=== PATIENT | male | born 2000 | race Hispanic/Latino ===

== ENCOUNTER 2021-09-12 10:23 | Emergency (ER) | payer OTHER, SELFPAY ==
[2021-09-12] VITALS (18 sets, daily range): BP systolic 126–156; BP diastolic 56–70; PULSE 54–85; RESP 12–24; TEMP 37.1–38.7; O2SAT 97–100; BMI 19.8
--- NOTE | 2021-09-12 10:43 | DI.RAD.S_ITS ---
PROCEDURE: XR CHEST 1V INDICATIONS: chest pain TECHNIQUE: One view of the chest was acquired. COMPARISON: None. FINDINGS: Surgical changes and devices: None. Lungs and pleura: Lungs are clear. No pleural effusions or pneumothorax. Mediastinum: Mediastinal contours appear normal. Heart size is normal. Bones and chest wall: No suspicious bony lesions. Overlying soft tissues appear unremarkable. IMPRESSION: No acute pulmonary process. Dictated by: Edelmira Morocho M.D. on 09/12/2021 at 11:14 Approved by: Edelmira Morocho M.D. on 09/12/2021 at 11:15
[2021-09-12 10:48] LABS: Add Manual Diff / Slide Review NO; Basophils Absolute Auto 100 /uL (0-100); Basophils Percent Auto 0.3 % (0-2); Eosinophils Absolute Auto 0 /uL (0-450); Eosinophils Percent Auto 0.2 % (2-4); Hemoglobin 14.2 g/dL (13.5-17.5); Lymphocytes Absolute Auto 1100 /uL (1100-4500); Lymphocytes Percent Auto 6.5 % (25-40); Mean Corpuscular HGB Conc 34.6 % (30-36); Mean Corpuscular Hemoglobin 29.7 PG (26-34); Mean Corpuscular Volume 85.8 fL (80-100); Monocytes Absolute Auto 2000 /uL (0-900); Monocytes Percent Auto 11.8 % (3-14); Neutrophils Absolute Auto 14100 /uL (1500-7000); Neutrophils Percent Auto 81.2 % (50-75); Platelet Count 279 X10^3/uL (150-400); Red Blood Cell Count 4.78 X10^6/uL (4.5-5.9); Red Cell Distribution Width 13.7 % (11.6-14.8); White Blood Cell Count 17.3 X10^3/uL (4.5-11.0)
[2021-09-12 10:56] LABS: Alanine Aminotransferase 113 IU/L (<50); Albumin 5.2 g/dL (3.5-5.0); Albumin Globulin Ratio 1.6 (1.0-2.8); Alkaline Phosphatase 189 U/L (38-126); Aspartate Aminotransferase 190 IU/L (17-59); BUN Creatinine Ratio 12.5 (6-22); Bilirubin Total 3.5 mg/dL (0.2-1.3); Blood Urea Nitrogen 13 mg/dL (9-20); Calcium 8.8 mg/dL (8.4-10.2); Carbon Dioxide 22 mmol/L (22-32); Chloride 99 mmol/L (98-107); Creatine Kinase 81 U/L (55-170); Estimated Glomerular Filt Rate > 60 mL/min (>60); Globulin 3.3 g/dL (1.7-4.1); Glucose 122 mg/dL (70-100); HEMOLYSIS 28 (0-50); Lipase 51 U/L (23-300); Magnesium 2.1 mg/dL (1.6-2.3); Potassium 3.8 mmol/L (3.4-5.1); Sodium 134 mmol/L (137-145); Total Protein 8.5 g/dL (6.3-8.2)
[2021-09-12 11:07] LABS: COVID19 -Nasal RAPID Negative (Negative)
--- NOTE | 2021-09-12 11:07 | ED_ITS ---
HPI - Chest Pain General Chief Complaint: Chest Pain Stated Complaint: Chest pain, SOB, fever Time Seen by Provider: 09/12/21 11:02 Source: patient Mode of arrival: Ambulatory Limitations: no limitations History of Present Illness HPI narrative: Patient is a 21-year-old healthy male who lives in the [facility] presents with chest shortness of breath and fever. He said that last night his left side of his chest started hurting. It is pretty constant. He denies any cough or shortness of breath. He has no abdominal pain nausea or vomiting. He has some mild fever of 100. He takes no medications. He denies any headache neck pain, fevers chills rigors night sweats Related Data Previous Rx's Medication Instructions Recorded amoxicillin 875 mg-potassium 1 tab PO BID #14 tabs 09/12/21 clavulanate 125 mg tablet Allergies Allergy/AdvReac Type Severity Reaction Status Date / Time No Known Drug Allergies Allergy Verified 09/12/21 10:45 Review of Systems Review of Systems Narrative: GENERAL: Denies chills, fatigue, malaise, fever, sweats, travel HEENT: Denies sinus pain, ear pain, sore throat, difficulty swallowing, neck pain RESPIRATORY: Denies dyspnea, cough, wheezing, hemoptysis, sputum. CARDIOVASCULAR: See HPI GASTROINTESTINAL: Denies nausea, vomiting, abdominal pain, diarrhea, constipation, melena. : Denies dysuria, frequency, incontinence, hematuria, urinary retention, flank pain. MUSCULOSKELETAL: Denies weakness, joint pain, or bony pain SKIN: No rash, no erythema, no pruritus NEUROLOGIC: Denies weakness, dizziness, headache, numbness, change in speech, confusion PSYCHIATRIC: No concerning psychosocial issues. 12 point review of systems is negative except for those stated above and HPI Patient History Social History Smoking Status: Never smoker Smoking Status: Never smoker alcohol intake frequency: 0-2 drinks per day Substance Use Type: does not use Exam Initial Vital Signs Initial Vital Signs: Vital Signs Temperature 100 F H 09/12/21 10:25 Pulse Rate 70 09/12/21 10:25 Respiratory Rate 16 09/12/21 10:25 Blood Pressure 135/70 09/12/21 10:25 Pulse Oximetry 100 09/12/21 10:25 Oxygen Delivery Method 09/12/21 10:25 GENERAL: Thin well-appearing 21-year-old male HEENT: Head atraumatic,EOMI, pupils reactive, face symmetric, moist mucous membranes, no meningeal signs CARDIOVASCULAR: Regular rate and rhythm without murmurs, rubs or gallops. RESPIRATORY: Breath sounds equal bilaterally, no wheezes rales or rhonchi. ABDOMEN: Soft, nontender. Normoactive bowel sounds all 4 quadrants. No guarding or rebound. Negative New sign no right upper quadrant pain : No CVA tenderness EXTREMITIES: Normal range of motion, no clubbing or edema. Neurovascularly i ntact NEUROLOGICAL: Alert and oriented x4.Normal gait and speech. SKIN: Warm, dry, no laceration, no petechiae, no rashes or lesions. Course Orders Ordered: ED Orders 09/12/21 10:35 Complete Blood Count AUTO DIFF Stat Comprehensive Metabolic Panel Stat Lactate (Lactic Acid) Stat Lipase Stat Magnesium Stat Troponin & CK Cardiac Panel Stat 09/12/21 10:38 COVID19 -Nasal RAPID/Pre-Proc Stat 09/12/21 10:43 XR chest 1V Stat EKG-12 Lead Stat 09/12/21 11:28 US abdomen limited Stat 09/12/21 11:35 Procalcitonin Stat 09/12/21 13:06 Blood Culture Stat 09/12/21 13:22 CT abdomen pelvis w con Stat 09/12/21 13:40 Ictotest Urine Stat Urine Culture Stat Urine Drug Screen, Rapid Stat Urine Microscopic Stat 09/12/21 15:31 Covid-19 + FLU A/B by PCR Stat Discontinued Medications Sodium Chloride (Normal Saline 0.9%) 1,000 mls @ 1,000 mls/hr IV BOLUS ONE Stop: 09/12/21 13:17 Last Infusion: 09/12/21 14:26 Dose: 0 mls/hr Documented By: Admin: 09/12/21 12:59 Dose: 1,000 mls/hr Documented By: BS Piperacillin Sod/Tazobactam (Sod 4.5 gm/ Sodium Chloride) 100 mls @ 200 mls/hr IV NOW ONE Stop: 09/12/21 12:19 Last Infusion: 09/12/21 13:38 Dose: 0 mls/hr Documented By: Admin: 09/12/21 13:00 Dose: 200 mls/hr Documented By: RIANNA Sodium Chloride (Normal Saline 0.9%) 1,000 mls @ 1,000 mls/hr IV BOLUS ONE Stop: 09/12/21 16:24 Last Infusion: 09/12/21 16:37 Dose: 0 mls/hr Documented By: Admin: 09/12/21 15:36 Dose: 1,000 mls/hr Documented By: RIANNA Ketorolac Tromethamine (Ketorolac 30 Mg/Ml Vial) 15 mg IV NOW ONE Stop: 09/12/21 12:52 Last Admin: 09/12/21 13:00 Dose: 15 mg Documented By: RIANNA Vital Signs Vital signs: Vital Signs - 8 hr 09/12/21 11:00 09/12/21 11:00 09/12/21 11:30 Temperature Pulse Rate 68 85 Respiratory Rate 12 13 Blood Pressure 137/70 Pulse Oximetry 100 09/12/21 12:00 09/12/21 12:08 09/12/21 12:08 Temperature Pulse Rate 80 82 Respiratory Rate 20 21 Blood Pressure 130/62 Pulse Oximetry 97 98 09/12/21 12:30 09/12/21 12:30 09/12/21 13:00 Temperature 101.7 F H 101.7 F H Pulse Rate 78 Respiratory Rate 24 Blood Pressure 141/68 H Pulse Oximetry 98 09/12/21 13:00 09/12/21 13:00 09/12/21 13:30 Temperature Pulse Rate 84 Respiratory Rate 21 Blood Pressure 129/69 129/62 Pulse Oximetry 100 09/12/21 13:30 09/12/21 14:11 09/12/21 14:12 Temperature Pulse Rate 77 82 Respiratory Rate 15 Blood Pressure 130/59 L Pulse Oximetry 97 97 09/12/21 14:12 09/12/21 14:30 09/12/21 14:30 Temperature 98.7 F Pulse Rate 75 64 Respiratory Rate 18 19 Blood Pressure 132/61 Pulse Oximetry 97 97 09/12/21 15:00 09/12/21 15:00 09/12/21 15:30 Temperature Pulse Rate 69 Respiratory Rate 18 Blood Pressure 131/60 126/56 L Pulse Oximetry 97 09/12/21 15:30 09/12/21 16:00 09/12/21 16:01 Temperature Pulse Rate 67 59 L 61 Respiratory Rate 22 18 18 Blood Pressure Pulse Oximetry 98 98 98 09/12/21 16:01 09/12/21 16:30 09/12/21 16:30 Temperature Pulse Rate 54 L Respiratory Rate 17 Blood Pressure 156/67 H 131/60 Pulse Oximetry 98 MDM - Chest Pain Lab Data Result diagrams: 09/12/21 10:35 09/12/21 10:35 Labs: Lab Results 09/12/21 09/12/21 09/12/21 Range/Units 10:35 10:35 10:35 WBC 17.3 H (4.5-11.0) X10^3/uL RBC 4.78 (4.5-5.9) X10^6/uL Hgb 14.2 (13.5-17.5) g/dL Hct 41.0 (41-53) % MCV 85.8 (80-100) fL MCH 29.7 (26-34) PG MCHC 34.6 (30-36) % RDW 13.7 (11.6-14.8) % Plt Count 279 (150-400) X10^3/uL Neut % (Auto) 81.2 H (50-75) % Lymph % (Auto) 6.5 L (25-40) % [place] % (Auto) 11.8 (3-14) % Eos % (Auto) 0.2 L (2-4) % Baso % (Auto) 0.3 (0-2) % Neut # (Auto) 62291 H (8968-2338) /uL Lymph # (Auto) 1100 (3668-1262) /uL [place] # (Auto) 2000 H (0-900) /uL Eos # (Auto) 0 (0-450) /uL Baso # (Auto) 100 (0-100) /uL Sodium 134 L (137-145) mmol/L Potassium 3.8 (3.4-5.1) mmol/L Chloride 99 (98-107) mmol/L Carbon Dioxide 22 (22-32) mmol/L BUN 13 (9-20) mg/dL Creatinine 1.04 (0.66-1.25) mg/dL Estimated GFR > 60 (>60) mL/min BUN/Creatinine Ratio 12.5 (6-22) Glucose 122 H (70-100) mg/dL Lactate 1.7 (0.7-2.1) mmol/L Calcium 8.8 (8.4-10.2) mg/dL Magnesium 2.1 (1.6-2.3) mg/dL Total Bilirubin 3.5 H (0.2-1.3) mg/dL AST 190 H (17-59) IU/L ALT 113 H (<50) IU/L Alkaline Phosphatase 189 H (38-126) U/L Total Creatine Kinase 81 (55-170) U/L CK-MB (CK-2) TNP CK-MB (CK-2) Rel Index TNP Troponin I < 0.012 (0.01-0.034) ng/mL Total Protein 8.5 H (6.3-8.2) g/dL Albumin 5.2 H (3.5-5.0) g/dL Globulin 3.3 (1.7-4.1) g/dL Albumin/Globulin Ratio 1.6 (1.0-2.8) Lipase 51 (23-300) U/L Procalcitonin (<0.5) ng/mL Ur Bilirubin Confirm (Negative) Urine RBC (0-5/HPF) Urine WBC (0-5/HPF) Ur Squamous Epith Cells (0-5/HPF) Urine Bacteria (None) Ur Culture Indicated? U Opiates 300ng/mL cut (Negative) Ur Oxycodone Screen (Negative) Urine Methadone Screen (Negative) Ur Barbiturates Screen (Negative) U Tricyclic Antidepress (Negative) Ur Phencyclidine Scrn (Negative) Ur Amphetamines Screen (Negative) U Methamphetamines Scrn (Negative) Ur MDMA Scrn (Ecstasy) (Negative) U Benzodiazepines Scrn (Negative) Urine Cocaine Screen (Negative) U Marijuana (THC) Screen (Negative) SARS-CoV-2 (PCR) (Negative) Influenza A (RT-PCR) (NEGATIVE) Influenza B (RT-PCR) (NEGATIVE) 09/12/21 09/12/21 09/12/21 Range/Units 10:38 11:35 13:40 WBC (4.5-11.0) X10^3/uL RBC (4.5-5.9) X10^6/uL Hgb (13.5-17.5) g/dL Hct (41-53) % MCV (80-100) fL MCH (26-34) PG MCHC (30-36) % RDW (11.6-14.8) % Plt Count (150-400) X10^3/uL Neut % (Auto) (50-75) % Lymph % (Auto) (25-40) % [place] % (Auto) (3-14) % Eos % (Auto) (2-4) % Baso % (Auto) (0-2) % Neut # (Auto) (8615-9218) /uL Lymph # (Auto) (7024-8975) /uL [place] # (Auto) (0-900) /uL Eos # (Auto) (0-450) /uL Baso # (Auto) (0-100) /uL Sodium (137-145) mmol/L Potassium (3.4-5.1) mmol/L Chloride (98-107) mmol/L Carbon Dioxide (22-32) mmol/L BUN (9-20) mg/dL Creatinine (0.66-1.25) mg/dL Estimated GFR (>60) mL/min BUN/Creatinine Ratio (6-22) Glucose (70-100) mg/dL Lactate (0.7-2.1) mmol/L Calcium (8.4-10.2) mg/dL Magnesium (1.6-2.3) mg/dL Total Bilirubin (0.2-1.3) mg/dL AST (17-59) IU/L ALT (<50) IU/L Alkaline Phosphatase (38-126) U/L Total Creatine Kinase (55-170) U/L CK-MB (CK-2) CK-MB (CK-2) Rel Index Troponin I (0.01-0.034) ng/mL Total Protein (6.3-8.2) g/dL Albumin (3.5-5.0) g/dL Globulin (1.7-4.1) g/dL Albumin/Globulin Ratio (1.0-2.8) Lipase (23-300) U/L Procalcitonin 3.04 H (<0.5) ng/mL Ur Bilirubin Confirm Negative (Negative) Urine RBC None seen (0-5/HPF) Urine WBC None seen (0-5/HPF) Ur Squamous Epith Cells 1-5 /hpf (0-5/HPF) Urine Bacteria None seen (None) Ur Culture Indicated? Culture not indicate U Opiates 300ng/mL cut (Negative) Ur Oxycodone Screen (Negative) Urine Methadone Screen (Negative) Ur Barbiturates Screen (Negative) U Tricyclic Antidepress (Negative) Ur Phencyclidine Scrn (Negative) Ur Amphetamines Screen (Negative) U Methamphetamines Scrn (Negative) Ur MDMA Scrn (Ecstasy) (Negative) U Benzodiazepines Scrn (Negative) Urine Cocaine Screen (Negative) U Marijuana (THC) Screen (Negative) SARS-CoV-2 (PCR) Negative (Negative) Influenza A (RT-PCR) (NEGATIVE) Influenza B (RT-PCR) (NEGATIVE) 09/12/21 09/12/21 Range/Units 13:40 15:31 WBC (4.5-11.0) X10^3/uL RBC (4.5-5.9) X10^6/uL Hgb (13.5-17.5) g/dL Hct (41-53) % MCV (80-100) fL MCH (26-34) PG MCHC (30-36) % RDW (11.6-14.8) % Plt Count (150-400) X10^3/uL Neut % (Auto) (50-75) % Lymph % (Auto) (25-40) % [place] % (Auto) (3-14) % Eos % (Auto) (2-4) % Baso % (Auto) (0-2) % Neut # (Auto) (2553-0614) /uL Lymph # (Auto) (3544-8177) /uL [place] # (Auto) (0-900) /uL Eos # (Auto) (0-450) /uL Baso # (Auto) (0-100) /uL Sodium (137-145) mmol/L Potassium (3.4-5.1) mmol/L Chloride (98-107) mmol/L Carbon Dioxide (22-32) mmol/L BUN (9-20) mg/dL Creatinine (0.66-1.25) mg/dL Estimated GFR (>60) mL/min BUN/Creatinine Ratio (6-22) Glucose (70-100) mg/dL Lactate (0.7-2.1) mmol/L Calcium (8.4-10.2) mg/dL Magnesium (1.6-2.3) mg/dL Total Bilirubin (0.2-1.3) mg/dL AST (17-59) IU/L ALT (<50) IU/L Alkaline Phosphatase (38-126) U/L Total Creatine Kinase (55-170) U/L CK-MB (CK-2) CK-MB (CK-2) Rel Index Troponin I (0.01-0.034) ng/mL Total Protein (6.3-8.2) g/dL Albumin (3.5-5.0) g/dL Globulin (1.7-4.1) g/dL Albumin/Globulin Ratio (1.0-2.8) Lipase (23-300) U/L Procalcitonin (<0.5) ng/mL Ur Bilirubin Confirm (Negative) Urine RBC (0-5/HPF) Urine WBC (0-5/HPF) Ur Squamous Epith Cells (0-5/HPF) Urine Bacteria (None) Ur Culture Indicated? U Opiates 300ng/mL cut Negative (Negative) Ur Oxycodone Screen Negative (Negative) Urine Methadone Screen Negative (Negative) Ur Barbiturates Screen Negative (Negative) U Tricyclic Antidepress Negative (Negative) Ur Phencyclidine Scrn Negative (Negative) Ur Amphetamines Screen Negative (Negative) U Methamphetamines Scrn Negative (Negative) Ur MDMA Scrn (Ecstasy) Negative (Negative) U Benzodiazepines Scrn Negative (Negative) Urine Cocaine Screen Negative (Negative) U Marijuana (THC) Screen Negative (Negative) SARS-CoV-2 (PCR) Negative (Negative) Influenza A (RT-PCR) Flu a negative (NEGATIVE) Influenza B (RT-PCR) Flu b negative (NEGATIVE) Urine Dip Bedside Urine Glucose Negative Bedside Urine Bilirubin + 1 Bedside Urine Ketone + 15 Urine Specific [place] 1.030 Bedside Urine Occult Blood - Negative Bedside Urine pH 6.0 Bedside Urine Protein + 30 Bedside Urine Urobilinogen 2+ 4mg Bedside Urine Nitrite - Negative Bedside Urine Leukocytes +/- 15 Esterase Imaging Data US - abdomen: Radiologist's Impression: Ultrasound Report Signed Patient: Emiliano Chisholm MR#: [id number] : 2000 Acct:[id number] Age/Sex: 21 / M Date of Service: 09/12/21 Loc: ED Accession Number: [id number] ?? Procedure: US abdomen limited Ordering Provider: Betty Alaniz D.O. PROCEDURE:? US ABDOMEN LIMITED ? INDICATIONS:? RIGHT UPPER QUADRANT PAIN ? TECHNIQUE:? Real-time scanning was performed of the abdominal and retroperitoneal organs, with image documentation.? ? COMPARISON:? None. ? FINDINGS:? ? Liver:? Liver is normal in size and homogeneous in echotexture.? ? Gallbladder:? The gallbladder wall measures 1.5 mm in diameter. No stones, sludge, pericholecystic fluid, or sonographic New sign. ? Biliary ducts:? Intrahepatic bile ducts are non-dilated.? Extrahepatic bile duct caliber measures 1.8 mm.? Normal is 6-7 mm or less in diameter, or 10 mm or less post-cholecystectomy.? ? Pancreas:? Visualized portions of the pancreas are sonographically normal.? ? Miscellaneous:? No free abdominal fluid.? ? ? IMPRESSION:? ? 1. No cholelithiasis or findings to suggest choledocholithiasis or acute c holecystitis. ? Dictated by: Valarie Schaffer M.D. on 09/12/2021 at 12:05 ? ? Chest x-ray: Radiologist's Impression: XRay Report Signed Patient: Emiliano Chisholm MR#: [id number] : 2000 Acct:[id number] Age/Sex: 21 / M Date of Service: 09/12/21 Loc: ED Accession Number: [id number] ?? Procedure: XR chest 1V Ordering Provider: Betty Alaniz D.O. PROCEDURE:? XR CHEST 1V ? INDICATIONS:? chest pain ? TECHNIQUE:? One view of the chest was acquired.? ? COMPARISON:? None. ? FINDINGS:? ? Surgical changes and devices:? None.? ? Lungs and pleura:? Lungs are clear.? No pleural effusions or pneumothorax.? ? Mediastinum:? Mediastinal contours appear normal.? Heart size is normal.? ? Bones and chest wall:? No suspicious bony lesions.? Overlying soft tissues appear unremarkable.? ? IMPRESSION:? No acute pulmonary process. ? ? Dictated by: Edelmira Morocho M.D. on 09/12/2021 at 11:14 ? ? Approved by: Edelmira Morocho M.D. on 09/12/2021 at 11:15 ? CT scan - abdomen/pelvis: Radiologist's Impression: [address] [place] [id number] Scan Report Signed Patient: Emiliano Chisholm MR#: [id number] : 2000 Acct:[id number] Age/Sex: 21 / M Date of Service: 09/12/21 Loc: ED Accession Number: [id number] ?? Procedure: CT abdomen pelvis w con Ordering Provider: Betty Alaniz D.O. PROCEDURE:? CT ABDOMEN PELVIS W CON ? INDICATIONS:? left flank pain fever ? TECHNIQUE:? After the administration of intravenous contrast, axial sections acquired from the lung bases to the pubic symphysis.? Coronal and sagittal reformats were performed.? For radiation dose reduction, the following was used:? automated exposure control, adjustment of mA and/or kV according to patient size.? ? COMPARISON:? None. ? FINDINGS:? Image quality:? Excellent.? ? Lung bases:? Unremarkable. Heart:? No significant findings. ? ABDOMEN: Liver:? Unremarkable.? ? Gallbladder:? Unremarkable. Biliary ducts:? Unremarkable.? ? Pancreas:? Unremarkable.? ? Spleen:? Unremarkable.? ? Adrenal Glands:? Unremarkable.? ? Kidneys and Ureters:? Unremarkable.? ? ? Stomach and Bowel:? There is no bowel obstruction.? Moderate fecal stasis throughout the colon is seen.? No stomach or small bowel wall thickening.? Appendix is not definitively identified.? No wall thickening or mesenteric fat stranding is seen in right lower quadrant abdomen.? No colonic wall thickening is seen.? No abscess collection. Peritoneum:? No abnormal intraperitoneal fluid.? No free air.? ? Ventral Wall: ? No hernias.? Abdominal Nodes:? No retroperitoneal or mesenteric adenopathy by size criteria.? Vessels:? Aorta and inferior vena cava are normal in size.? ? PELVIS: Pelvic Organs:? Unremarkable.? ? Bladder:? Partially distended urinary bladder shows diffuse bladder wall thickening.? No discrete bladder wall mass is seen. Pelvic Nodes: No enlarged lymph nodes.? Miscellaneous: No hernias are seen. ? ? ? Bones:? Unr no suspicious bony lesion.? No acute vertebral body compression fracture. ? ? IMPRESSION:? 1. Suggestion of mild to moderate constipation.? No abnormal bowel wall thickening.? No bowel obstruction.? No free fluid or free air.? No secondary CT signs of acute appendicitis. 2. No renal stones or hydronephrosis. 3. Questionable mild diffuse bladder wall thickening likely due to under distension.? Low-grade cystitis cannot be entirely excluded.? ? ? Dictated by: Len Hendrix M.D. on 09/12/2021 at 14:14 ? ? [facility] Narrative Medical decision making narrative: Healthy 21-year-old male initially thought to have COVID symptoms a actually does have leukocytosis all fever and significantly elevated procalcitonin. Liver enzymes and bilirubin are elevated bilirubin is 3.5 AST 190 ALT 113 and alk-phos 189. Has absolutely no right upper quadrant pain. His COVID test is negative. Both ultrasound and chest x-ray are negative. He has a normal EKG and normal troponin. There is concern lumbar bacterial infection with elevated procalcitonin of 3. However I do not know where his source of infection is. He has no meningeal signs. Dr. Li who, hospitalist consult in regard to admission. At this time no need for admission, recommend sending home with antibiotics and close monitoring Discharge Plan Departure Patient Disposition: Home Clinical Impression: Fever Instructions: Fever of Unknown Origin Activity Restrictions/Additional Instructions: *You have been diagnosed with fever *What to do: You probably have a bacterial infection your blood cultures may be positive in a couple of days. We will call you in 2-3 days. I also recommend retesting for COVID in 2-3 days. Today are negative *Continue to take medications as directed Augmentin 875 mg twice a day for 1 week Tylenol 1000 mg every 6 hours if needed for fever Ibuprofen 600 mg every 6 hours as needed for pain or fever *Follow up with your primary care provider in 2-3 days or call [phone] *Return to ER if you should have persistent fever not tolerating fluids, increasing pain, or any new, worsening or concerning symptoms Prescriptions: New amoxicillin-pot clavulanate 875-125 mg tablet 1 tab PO BID Qty: 14 0RF Stand Alone Forms: Work Release Note Visit Report Forms: Patient Portal/API
[2021-09-12 11:08] LABS: Troponin I < 0.012 ng/mL (0.01-0.034)
--- NOTE | 2021-09-12 11:28 | DI.US.S_ITS ---
PROCEDURE: US ABDOMEN LIMITED INDICATIONS: RIGHT UPPER QUADRANT PAIN TECHNIQUE: Real-time scanning was performed of the abdominal and retroperitoneal organs, with image documentation. COMPARISON: None. FINDINGS: Liver: Liver is normal in size and homogeneous in echotexture. Gallbladder: The gallbladder wall measures 1.5 mm in diameter. No stones, sludge, pericholecystic fluid, or sonographic New sign. Biliary ducts: Intrahepatic bile ducts are non-dilated. Extrahepatic bile duct caliber measures 1.8 mm. Normal is 6-7 mm or less in diameter, or 10 mm or less post-cholecystectomy. Pancreas: Visualized portions of the pancreas are sonographically normal. Miscellaneous: No free abdominal fluid. IMPRESSION: 1. No cholelithiasis or findings to suggest choledocholithiasis or acute cholecystitis. Dictated by: Valarie Schaffer M.D. on 09/12/2021 at 12:05 Approved by: Valarie Schaffer M.D. on 09/12/2021 at 12:11
[2021-09-12 11:43] LABS: Lactate (Lactic Acid) 1.7 mmol/L (0.7-2.1)
[2021-09-12 12:02] LABS: Procalcitonin 3.04 ng/mL (<0.5)
[2021-09-12] MEDS: SODIUM CHLORIDE 0.9% 1,000 ML 1000 ML IV ×2 (12:59→15:36)
[2021-09-12] MEDS: KETOROLAC 30 MG/ML VIAL 15 MG IV (13:00)
[2021-09-12] MEDS: PIPERACILLIN/TAZO 4.5 GM in SODIUM CHLORIDE 0.9% 100 ML IV (13:00)
--- NOTE | 2021-09-12 13:22 | DI.CT.S_ITS ---
PROCEDURE: CT ABDOMEN PELVIS W CON INDICATIONS: left flank pain fever TECHNIQUE: After the administration of intravenous contrast, axial sections acquired from the lung bases to the pubic symphysis. Coronal and sagittal reformats were performed. For radiation dose reduction, the following was used: automated exposure control, adjustment of mA and/or kV according to patient size. COMPARISON: None. FINDINGS: Image quality: Excellent. Lung bases: Unremarkable. Heart: No significant findings. ABDOMEN: Liver: Unremarkable. Gallbladder: Unremarkable. Biliary ducts: Unremarkable. Pancreas: Unremarkable. Spleen: Unremarkable. Adrenal Glands: Unremarkable. Kidneys and Ureters: Unremarkable. Stomach and Bowel: There is no bowel obstruction. Moderate fecal stasis throughout the colon is seen. No stomach or small bowel wall thickening. Appendix is not definitively identified. No wall thickening or mesenteric fat stranding is seen in right lower quadrant abdomen. No colonic wall thickening is seen. No abscess collection. Peritoneum: No abnormal intraperitoneal fluid. No free air. Ventral Wall: No hernias. Abdominal Nodes: No retroperitoneal or mesenteric adenopathy by size criteria. Vessels: Aorta and inferior vena cava are normal in size. PELVIS: Pelvic Organs: Unremarkable. Bladder: Partially distended urinary bladder shows diffuse bladder wall thickening. No discrete bladder wall mass is seen. Pelvic Nodes: No enlarged lymph nodes. Miscellaneous: No hernias are seen. Bones: Unr no suspicious bony lesion. No acute vertebral body compression fracture. IMPRESSION: 1. Suggestion of mild to moderate constipation. No abnormal bowel wall thickening. No bowel obstruction. No free fluid or free air. No secondary CT signs of acute appendicitis. 2. No renal stones or hydronephrosis. 3. Questionable mild diffuse bladder wall thickening likely due to under distension. Low-grade cystitis cannot be entirely excluded. Dictated by: Len Hendrix M.D. on 09/12/2021 at 14:14 Approved by: Len Hendrix M.D. on 09/12/2021 at 14:17
[2021-09-12 14:22] LABS: Bacteria Urine None Seen; Ictotest Urine Negative (Negative); RBC Urine None Seen (0-5/HPF); Squamous Epithelial Cell Urine 1-5 /HPF (0-5/HPF); WBC Urine None Seen (0-5/HPF)
[2021-09-12 14:45] LABS: Ur Creatinine Normal (Normal); Ur Specific Gravity Normal (Normal); Urine pH Normal (Normal)
[2021-09-12 14:46] LABS: UR Morphine/Opiate cutoff 300 Negative (Negative); Urine Amphetamines Negative (Negative); Urine Barbiturates Negative (Negative); Urine Benzodiazepines Negative (Negative); Urine Cocaine Negative (Negative); Urine MDMA Negative (Negative); Urine Methadone Negative (Negative); Urine Methamphetamines Negative (Negative); Urine Oxycodone Negative (Negative); Urine Phencyclidine Negative (Negative); Urine Tetrahydrocannabinol Negative (Negative); Urine Tricyclic Antidepressant Negative (Negative)
[2021-09-12 16:28] LABS: Influenza A - CEPHEID Flu A NEGATIVE (NEGATIVE); Influenza B - CEPHEID Flu B NEGATIVE (NEGATIVE)
[2021-09-12 16:37] LABS: COVID-19 CEPHEID PCR (VTM/NP) Negative (Negative)
== END 2021-09-12 16:43 | disposition home or self-care (01) ==
PROVIDERS: Emergency Provider Emergency Medicine
DX: R50.9 Fever, unspecified (principal); R10.11 Right upper quadrant pain; R79.89 Other specified abnormal findings of blood chemistry; Z20.822 Contact with and (suspected) exposure to COVID-19
CPT/HCPCS: 36415; 71045; 74177; 76705; 80053; 80305; 81003; 81015; 82550; 83605; 83690; 83735; 84145; 84484; 85025; 87040; 87086; 87635; 93005; 93010; 96361; 96365; 96375; 99284; 99285; C9803; J1885; J2543

== ENCOUNTER 2021-09-13 08:50 | Inpatient (IN) | payer OTHER, SELFPAY ==
[2021-09-13] VITALS (8 sets, daily range): BP systolic 106–122; BP diastolic 51–70; PULSE 52–64; RESP 16–20; TEMP 36.4–37.7; O2SAT 97–100; BMI 20.3
--- NOTE | 2021-09-13 08:55 | ED_ITS ---
HPI - Abdominal Pain General Chief Complaint: Abdominal Pain Stated Complaint: abd pain Time Seen by Provider: 09/13/21 08:51 History of Present Illness HPI narrative: Patient is a healthy 21-year-old male who returns to the ED after being seen yesterday. He was seen yesterday for fever chest pain abdominal pain. He actually had a temperature of 101.7? ED found to have elevated bilirubin liver enzymes but no real right upper quadrant pain. Ultrasound and CT were negative. He had some mild leukocytosis of 17 yesterday. After discussing with hospitalist it was agreed sent him home on p.o. antibiotics as no other markers for elevated. Patient says he went home he did not sleepy had abdominal pain he threw up once. He does not know that he has had any further fever. He overall does not feel well. Related Data Previous Rx's Medication Instructions Recorded amoxicillin 875 mg-potassium 1 tab PO BID #14 tabs 09/12/21 clavulanate 125 mg tablet Allergies Allergy/AdvReac Type Severity Reaction Status Date / Time No Known Drug Allergies Allergy Verified 09/12/21 10:45 Review of Systems Review of Systems Narrative: GENERAL: Denies chills, fatigue, malaise, fever, sweats, travel HEENT: Denies sinus pain, ear pain, sore throat, difficulty swallowing, neck pain RESPIRATORY: Denies dyspnea, cough, wheezing, hemoptysis, sputum. CARDIOVASCULAR: Denies chest pain, palpitations, orthopnea, edema GASTROINTESTINAL: See HPI : Denies dysuria, frequency, incontinence, hematuria, urinary retention, flank pain. MUSCULOSKELETAL: Denies weakness, joint pain, or bony pain SKIN: No rash, no erythema, no pruritus NEUROLOGIC: Denies weakness, dizziness, headache, numbness, change in speech, confusion PSYCHIATRIC: No concerning psychosocial issues. 12 point review of systems is negative except for those stated above and HPI Patient History Family History (Updated 09/13/21 @ 16:30 by Paul Olson DO) Other GERD (gastroesophageal reflux disease) Social History household members: other Smoking Status: Never smoker Smoking Status: Never smoker alcohol intake frequency: 0-2 drinks per day Substance Use Type: does not use Exam Initial Vital Signs Initial Vital Signs: Vital Signs Temperature 99.9 F H 09/13/21 09:04 Pulse Rate 56 L 09/13/21 09:04 Respiratory Rate 20 09/13/21 09:04 Blood Pressure 117/67 09/13/21 09:04 Pulse Oximetry 100 09/13/21 09:04 Oxygen Delivery Method 09/13/21 09:04 GENERAL: Alert 21-year-old male appears mildly uncomfortable and in no acute distress. HEENT: Head atraumatic,EOMI, pupils reactive, face symmetric, moist mucous m embranes CARDIOVASCULAR: Regular rate and rhythm without murmurs, rubs or gallops. RESPIRATORY: Breath sounds equal bilaterally, no wheezes rales or rhonchi. ABDOMEN: Soft, epigastric pain no guarding no rebound : Mild bilateral flank pain EXTREMITIES: Normal range of motion, no clubbing or edema. Neurovascularly intact NEUROLOGICAL: Alert and oriented x4. SKIN: Warm, dry, no laceration, no petechiae, no rashes or lesions. Course Orders Ordered: ED Orders 09/13/21 10:28 MRCP [MR abdomen wo con] Stat 09/13/21 12:00 Hepatitis Acute Panel Stat Enoxaparin Sodium (Enoxaparin 40 Mg/0.4 Ml Syringe) 40 mg SUBCUT DAILY [facility] Hydromorphone HCl (Hydromorphone 0.5 Mg Inj) 1 mg IV Q4H PRN PRN Reason: Breakthrough pain only (8-10) Lactated Ringer's (Lactated Ringers) 1,000 mls @ 100 mls/hr IV CONT [facility] Last Admin: 09/13/21 17:30 Dose: Not Given Documented By: JASON Piperacillin Sod/Tazobactam (Sod 3.375 gm/ Sodium Chloride) 100 mls @ 25 mls/hr IV Q8H [facility] Last Admin: 09/13/21 17:37 Dose: 25 mls/hr Documented By: JASON Ketorolac Tromethamine (Ketorolac 30 Mg/Ml Vial) 30 mg IV Q6H [facility] Stop: 09/16/21 13:04 Last Admin: 09/13/21 14:46 Dose: 30 mg Documented By: JASON Ondansetron HCl (Ondansetron 4 Mg/2 Ml Inj) 4 mg IV Q8HR PRN PRN Reason: Nausea And Vomiting Last Admin: 09/13/21 14:46 Dose: 4 mg Documented By: JASON Oxycodone HCl (Oxycodone Ir 10 Mg Tablet) 5 mg PO Q4HR PRN PRN Reason: Pain, Severe (7-10) Pantoprazole Sodium (Pantoprazole Dr 40 Mg Tablet) 40 mg PO 0700 SHANNAN Last Admin: 09/13/21 17:37 Dose: 40 mg Documented By: JASON Discontinued Medications Sodium Chloride (Normal Saline 0.9%) 1,000 mls @ 1,000 mls/hr IV BOLUS ONE Stop: 09/13/21 09:55 Last Infusion: 09/13/21 12:02 Dose: 0 mls/hr Documented By: Admin: 09/13/21 09:57 Dose: 1,000 mls/hr Documented By: ART Sodium Chloride (Normal Saline 0.9%) 1,000 mls @ 1,000 mls/hr IV BOLUS ONE Stop: 09/13/21 09:55 Last Infusion: 09/13/21 12:37 Dose: 0 mls/hr Documented By: Admin: 09/13/21 09:58 Dose: 1,000 mls/hr Documented By: ART Piperacillin Sod/Tazobactam (Sod 4.5 gm/ Sodium Chloride) 100 mls @ 200 mls/hr IV NOW ONE Stop: 09/13/21 10:04 Last Infusion: 09/13/21 11:24 Dose: 0 mls/hr Documented By: Admin: 09/13/21 10:18 Dose: 200 mls/hr Documented By: ART Ketorolac Tromethamine (Ketorolac 30 Mg/Ml Vial) 15 mg IV NOW ONE Stop: 09/13/21 08:57 Last Admin: 09/13/21 09:55 Dose: 15 mg Documented By: ART Morphine Sulfate (Morphine 4 Mg/Ml Inj) 4 mg IV NOW ONE Stop: 09/13/21 10:29 Last Admin: 09/13/21 10:33 Dose: 4 mg Documented By: ART Ondansetron HCl (Ondansetron 4 Mg/2 Ml Inj) 4 mg IV NOW ONE Stop: 09/13/21 10:29 Last Admin: 09/13/21 10:33 Dose: 4 mg Documented By: ART Oxycodone HCl (Oxycodone Ir 10 Mg Tablet) 10 mg PO Q4HR PRN PRN Reason: Pain, Severe (7-10) Pantoprazole Sodium (Pantoprazole Dr 40 Mg Tablet) 40 mg PO 0700,2100 SHANNAN Last Admin: 09/13/21 18:37 Dose: Not Given Documented By: ESTEPHANIA Vital Signs Vital signs: Vital Signs - 8 hr 09/13/21 11:40 09/13/21 12:04 Pulse Rate 62 64 Respiratory Rate 16 18 Blood Pressure 114/56 L 115/54 L Pulse Oximetry 97 97 Oxygen Delivery Method Room Air Room Air MDM - Abdominal Pain Lab Data Result diagrams: 09/13/21 09:20 09/13/21 09:20 Labs: Lab Results 09/13/21 09/13/21 09/13/21 Range/Units 09:05 09:20 09:20 WBC 14.9 H (4.5-11.0) X10^3/uL RBC 4.24 L (4.5-5.9) X10^6/uL Hgb 12.6 L (13.5-17.5) g/dL Hct 36.6 L (41-53) % MCV 86.4 (80-100) fL MCH 29.7 (26-34) PG MCHC 34.3 (30-36) % RDW 13.6 (11.6-14.8) % Plt Count 229 (150-400) X10^3/uL Neut % (Auto) 83.1 H (50-75) % Lymph % (Auto) 6.6 L (25-40) % Mccreary % (Auto) 9.4 (3-14) % Eos % (Auto) 0.8 L (2-4) % Baso % (Auto) 0.1 (0-2) % Neut # (Auto) 89725 H (4905-5138) /uL Lymph # (Auto) 1000 L (9621-2352) /uL Mccreary # (Auto) 1400 H (0-900) /uL Eos # (Auto) 100 (0-450) /uL Baso # (Auto) 0 (0-100) /uL Sodium 137 (137-145) mmol/L Potassium 3.5 (3.4-5.1) mmol/L Chloride 107 (98-107) mmol/L Carbon Dioxide 18 L (22-32) mmol/L BUN 9 (9-20) mg/dL Creatinine 0.80 (0.66-1.25) mg/dL Estimated GFR > 60 (>60) mL/min BUN/Creatinine Ratio 11.3 (6-22) Glucose 117 H (70-100) mg/dL Lactate (0.7-2.1) mmol/L Calcium 8.4 (8.4-10.2) mg/dL Total Bilirubin 4.2 H (0.2-1.3) mg/dL Direct Bilirubin (0.0-0.4) mg/dL AST 70 H (17-59) IU/L ALT 83 H (<50) IU/L Alkaline Phosphatase 159 H (38-126) U/L Total Creatine Kinase (55-170) U/L CK-MB (CK-2) CK-MB (CK-2) Rel Index Troponin I (0.01-0.034) ng/mL Total Protein 7.1 (6.3-8.2) g/dL Albumin 4.3 (3.5-5.0) g/dL Globulin 2.8 (1.7-4.1) g/dL Albumin/Globulin Ratio 1.5 (1.0-2.8) Lipase 77 D (23-300) U/L Procalcitonin 2.19 H (<0.5) ng/mL Urine Color Yellow Urine Appearance Clear Urine pH 7.5 (4.5-8.0) Ur Specific Mason 1.010 (1.000-1.035) Urine Protein Trace H (Negative) Urine Glucose (UA) Negative (Negative) g/dL Urine Ketones 3+ H (NEGATIVE) Urine Occult Blood Negative (Negative) Urine Nitrate Negative (Negative) Urine Bilirubin 2+ H (NEGATIVE) Ur Bilirubin Confirm Positive H (Negative) Urine Urobilinogen >=8.0 (0.2) E.U./dL Ur Leukocyte Esterase Negative (NEGATIVE) Urine RBC None seen (0-5/HPF) Urine WBC 0-1/hpf (0-5/HPF) Ur Squamous Epith Cells 0-1 /hpf (0-5/HPF) Urine Bacteria Occasional (0-1) (None) Ur Culture Indicated? Cult not indicated Acetaminophen (10-30) ug/mL Monoscreen (Negative) HIV 1&2 Ab/P24 Ag 4thGn (NEGATIVE) 09/13/21 09/13/21 09/13/21 Range/Units 09:20 09:20 09:20 WBC (4.5-11.0) X10^3/uL RBC (4.5-5.9) X10^6/uL Hgb (13.5-17.5) g/dL Hct (41-53) % MCV (80-100) fL MCH (26-34) PG MCHC (30-36) % RDW (11.6-14.8) % Plt Count (150-400) X10^3/uL Neut % (Auto) (50-75) % Lymph % (Auto) (25-40) % Mccreary % (Auto) (3-14) % Eos % (Auto) (2-4) % Baso % (Auto) (0-2) % Neut # (Auto) (4744-4856) /uL Lymph # (Auto) (3632-9266) /uL Mccreary # (Auto) (0-900) /uL Eos # (Auto) (0-450) /uL Baso # (Auto) (0-100) /uL Sodium (137-145) mmol/L Potassium (3.4-5.1) mmol/L Chloride (98-107) mmol/L Carbon Dioxide (22-32) mmol/L BUN (9-20) mg/dL Creatinine (0.66-1.25) mg/dL Estimated GFR (>60) mL/min BUN/Creatinine Ratio (6-22) Glucose (70-100) mg/dL Lactate 1.4 (0.7-2.1) mmol/L Calcium (8.4-10.2) mg/dL Total Bilirubin (0.2-1.3) mg/dL Direct Bilirubin (0.0-0.4) mg/dL AST (17-59) IU/L ALT (<50) IU/L Alkaline Phosphatase (38-126) U/L Total Creatine Kinase 75 (55-170) U/L CK-MB (CK-2) TNP CK-MB (CK-2) Rel Index TNP Troponin I < 0.012 (0.01-0.034) ng/mL Total Protein (6.3-8.2) g/dL Albumin (3.5-5.0) g/dL Globulin (1.7-4.1) g/dL Albumin/Globulin Ratio (1.0-2.8) Lipase (23-300) U/L Procalcitonin (<0.5) ng/mL Urine Color Urine Appearance Urine pH (4.5-8.0) Ur Specific Mason (1.000-1.035) Urine Protein (Negative) Urine Glucose (UA) (Negative) g/dL Urine Ketones (NEGATIVE) Urine Occult Blood (Negative) Urine Nitrate (Negative) Urine Bilirubin (NEGATIVE) Ur Bilirubin Confirm (Negative) Urine Urobilinogen (0.2) E.U./dL Ur Leukocyte Esterase (NEGATIVE) Urine RBC (0-5/HPF) Urine WBC (0-5/HPF) Ur Squamous Epith Cells (0-5/HPF) Urine Bacteria (None) Ur Culture Indicated? Acetaminophen < 10 (10-30) ug/mL Monoscreen (Negative) HIV 1&2 Ab/P24 Ag 4thGn (NEGATIVE) 09/13/21 09/13/21 09/13/21 Range/Units 09:20 09:20 09:20 WBC (4.5-11.0) X10^3/uL RBC (4.5-5.9) X10^6/uL Hgb (13.5-17.5) g/dL Hct (41-53) % MCV (80-100) fL MCH (26-34) PG MCHC (30-36) % RDW (11.6-14.8) % Plt Count (150-400) X10^3/uL Neut % (Auto) (50-75) % Lymph % (Auto) (25-40) % Mccreary % (Auto) (3-14) % Eos % (Auto) (2-4) % Baso % (Auto) (0-2) % Neut # (Auto) (0067-6053) /uL Lymph # (Auto) (8482-2161) /uL Mccreary # (Auto) (0-900) /uL Eos # (Auto) (0-450) /uL Baso # (Auto) (0-100) /uL Sodium (137-145) mmol/L Potassium (3.4-5.1) mmol/L Chloride (98-107) mmol/L Carbon Dioxide (22-32) mmol/L BUN (9-20) mg/dL Creatinine (0.66-1.25) mg/dL Estimated GFR (>60) mL/min BUN/Creatinine Ratio (6-22) Glucose (70-100) mg/dL Lactate (0.7-2.1) mmol/L Calcium (8.4-10.2) mg/dL Total Bilirubin (0.2-1.3) mg/dL Direct Bilirubin 2.3 H (0.0-0.4) mg/dL AST (17-59) IU/L ALT (<50) IU/L Alkaline Phosphatase (38-126) U/L Total Creatine Kinase (55-170) U/L CK-MB (CK-2) CK-MB (CK-2) Rel Index Troponin I (0.01-0.034) ng/mL Total Protein (6.3-8.2) g/dL Albumin (3.5-5.0) g/dL Globulin (1.7-4.1) g/dL Albumin/Globulin Ratio (1.0-2.8) Lipase (23-300) U/L Procalcitonin (<0.5) ng/mL Urine Color Urine Appearance Urine pH (4.5-8.0) Ur Specific Mason (1.000-1.035) Urine Protein (Negative) Urine Glucose (UA) (Negative) g/dL Urine Ketones (NEGATIVE) Urine Occult Blood (Negative) Urine Nitrate (Negative) Urine Bilirubin (NEGATIVE) Ur Bilirubin Confirm (Negative) Urine Urobilinogen (0.2) E.U./dL Ur Leukocyte Esterase (NEGATIVE) Urine RBC (0-5/HPF) Urine WBC (0-5/HPF) Ur Squamous Epith Cells (0-5/HPF) Urine Bacteria (None) Ur Culture Indicated? Acetaminophen (10-30) ug/mL Monoscreen Negative (Negative) HIV 1&2 Ab/P24 Ag 4thGn Negative (NEGATIVE) Imaging Data US - abdomen: Radiologist's Impression: zak EverettJohniegaviota Arreaga MR#: [id number] : 2000 Acct:[id number] Age/Sex: 21 / M Date of Service: 09/13/21 Loc: ED Accession Number: [id number] ?? Procedure: US abdomen limited Ordering Provider: Betty Alaniz D.O. PROCEDURE:? US ABDOMEN LIMITED ? INDICATIONS:? high bili ruq pain ? TECHNIQUE:? Real-time scanning was performed of the abdominal and retroperitoneal organs, with image documentation.? ? COMPARISON:? [facility], US, US ABDOMEN LIMITED, 09/12/2021, 12:46. ? FINDINGS:? ? Liver:? Liver is normal in size and homogeneous in echotexture.? The main portal vein is hepatopetal. ? Gallbladder:? The gallbladder is normal.? No stones.? No pericholecystic fluid.? Sonographic New's is negative.? ? Biliary ducts:? No intrahepatic biliary ductal dilatation.? Common bile duct is 3.2 mm. ? Pancreas:? Visualized portions of the pancreas are sonographically normal.? ? Kidneys:? Kidneys are normal in size and echotexture.? Right kidney measures 3.2 cm long. ?No hydronephrosis or nephrolithiasis.? No solid masses.? ? ? IMPRESSION:? Normal right upper quadrant ultrasound. ? Dictated by: Duane Olivarez M.D. on 09/13/2021 at 10:38 ? ? MRCP : Radiologist's Impression: Magnetic Resonance Report Signed Patient: Emiliano Chisholm MR#: [id number] : 2000 Acct:[id number] Age/Sex: 21 / M Date of Service: 09/13/21 Loc: ED Accession Number: [id number] ?? Procedure: MR abdomen wo con Ordering Provider: Betty Alaniz D.O. PROCEDURE:? MR ABDOMEN WO CON ? INDICATIONS:? high bili ab pain neg us fever ? TECHNIQUE:? Coronal HASTE through the abdomen, axial 2-D FLASH in- and [id number], and breath-hold T2 FSE with fat saturation through the biliary system and pancreas.? Oblique coronal and axial thin-slice HASTE, radial thick-slab HASTE centered on the extrahepatic bile ducts.? ? ? Intravenous secretin:? Not requested.? ? COMPARISON:? [facility], CT, CT ABDOMEN PELVIS W CON, 09/12/2021, 14:05.? [facility], US ABDOMEN LIMITED, 09/12/2021, 12:46.? [facility], US ABDOMEN LIMITED, 09/13/2021, 11:13. ? FINDINGS:? Image quality:? Excellent.? ? Pancreas and biliary system:? Intra- and extra-hepatic biliary ducts are non dilated.? Pancreas is normal in morphology, without adjacent soft tissue edema.? Pancreatic duct is normal in caliber, without developmental anomalies.? Gallbladder is decompressed without wall thickening or stone.? ? Other solid organs:? Liver is normal in size and signal with a smooth margin.? No cysts or masses.? Spleen is normal in size.? No adrenal nodules.? Both kidneys are normal in size, without hydronephrosis.? ? Nodes and vessels:? No retroperitoneal or mesenteric adenopathy by size criteria.? Aorta and inferior vena cava are normal in size.? ? Bowel and peritoneum:? Unenhanced bowel loops are normal in caliber.? No free fluid.? ? Lung bases:? No basal pleural effusions.? Heart size is normal.? ? Bones and soft tissues:? No ventral hernias.? Bone marrow is of normal overall signal.? ? IMPRESSION:? ? 1. Normal MR of the abdomen.? No explanation for elevated bilirubin.? ? ? Dictated by: Kristen Shelton M.D. on 09/13/2021 at 11:49 ? ? MDM Narrative Medical decision making narrative: Patient is a bounce-back from yesterday. He is septic he had a fever yesterday 101.7 he continues to have leukocytosis. Procalcitonin has improved. He continues to have elevated liver enzymes and bilirubin which are slightly increased today. Unknown cause of this. He denies taking any Tylenol. Hepatitis panel is pending. He does not really have any diarrhea. No significant travel. Patient is stable he is not tachycardic or hypotensive. Today he is afebrile. Dr. Olson accepts patient Discharge Plan Departure Patient Disposition: Admitted As Inpatient Clinical Impression: Sepsis Admit Date/Time: 09/13/21 12:14 Admit Provider: Paul Olson
--- NOTE | 2021-09-13 08:56 | DI.RAD.S_ITS ---
PROCEDURE: XR CHEST 1V INDICATIONS: suspected sepsis TECHNIQUE: One view of the chest was acquired. COMPARISON: Located [facility], , XR CHEST 1V, 09/12/2021, 10:43. FINDINGS: Surgical changes and devices: None. Lungs and pleura: Lungs are clear. No pleural effusions or pneumothorax. Mediastinum: Mediastinal contours appear normal. Heart size is normal. Bones and chest wall: No suspicious bony lesions. Overlying soft tissues appear unremarkable. IMPRESSION: Normal portable chest. No infiltrates. Dictated by: Candido Bowser M.D. on 09/13/2021 at 8:39 Approved by: Candido Bowser M.D. on 09/13/2021 at 8:40
[2021-09-13 09:32] LABS: Appearance Urine UA CLEAR; Bilirubin Urine UA 2+ (NEGATIVE); Color Urine UA YELLOW; Glucose Urine UA NEGATIVE (Negative); Ketones Urine UA 3+ (NEGATIVE); Leukocyte Esterase Urine UA NEGATIVE (NEGATIVE); Nitrite Urine UA NEGATIVE (Negative); Occult Blood Urine UA NEGATIVE (Negative); Protein Urine UA TRACE (Negative); Urobilinogen Urine UA >=8.0 E.U./dL (0.2); pH Urine UA 7.5 (4.5-8.0)
[2021-09-13 09:42] LABS: Add Manual Diff / Slide Review NO; Basophils Absolute Auto 0 /uL (0-100); Basophils Percent Auto 0.1 % (0-2); Eosinophils Absolute Auto 100 /uL (0-450); Eosinophils Percent Auto 0.8 % (2-4); Hematocrit 36.6 % (41-53); Hemoglobin 12.6 g/dL (13.5-17.5); Lymphocytes Absolute Auto 1000 /uL (1100-4500); Lymphocytes Percent Auto 6.6 % (25-40); Mean Corpuscular HGB Conc 34.3 % (30-36); Mean Corpuscular Hemoglobin 29.7 PG (26-34); Mean Corpuscular Volume 86.4 fL (80-100); Monocytes Absolute Auto 1400 /uL (0-900); Monocytes Percent Auto 9.4 % (3-14); Neutrophils Absolute Auto 12400 /uL (1500-7000); Neutrophils Percent Auto 83.1 % (50-75); Platelet Count 229 X10^3/uL (150-400); Red Blood Cell Count 4.24 X10^6/uL (4.5-5.9); Red Cell Distribution Width 13.6 % (11.6-14.8); White Blood Cell Count 14.9 X10^3/uL (4.5-11.0)
[2021-09-13 09:50] LABS: Bacteria Urine Occasional (0-1); Culture Indicated Urine Cult Not Indicated; RBC Urine None Seen (0-5/HPF); Squamous Epithelial Cell Urine 0-1 /HPF (0-5/HPF); WBC Urine 0-1/HPF (0-5/HPF)
[2021-09-13 09:51] LABS: Ictotest Urine Positive (Negative)
[2021-09-13] MEDS: KETOROLAC 30 MG/ML VIAL 15 MG IV (09:55)
[2021-09-13 09:56] LABS: Lactate (Lactic Acid) 1.4 mmol/L (0.7-2.1)
[2021-09-13] MEDS: SODIUM CHLORIDE 0.9% 1,000 ML 1000 ML IV ×2 (09:57→09:58)
--- NOTE | 2021-09-13 10:02 | DI.US.S_ITS ---
PROCEDURE: US ABDOMEN LIMITED INDICATIONS: high bili ruq pain TECHNIQUE: Real-time scanning was performed of the abdominal and retroperitoneal organs, with image documentation. COMPARISON: [facility], US, US ABDOMEN LIMITED, 09/12/2021, 12:46. FINDINGS: Liver: Liver is normal in size and homogeneous in echotexture. The main portal vein is hepatopetal. Gallbladder: The gallbladder is normal. No stones. No pericholecystic fluid. Sonographic New's is negative. Biliary ducts: No intrahepatic biliary ductal dilatation. Common bile duct is 3.2 mm. Pancreas: Visualized portions of the pancreas are sonographically normal. Kidneys: Kidneys are normal in size and echotexture. Right kidney measures 3.2 cm long. No hydronephrosis or nephrolithiasis. No solid masses. IMPRESSION: Normal right upper quadrant ultrasound. Dictated by: Duane Olivarez M.D. on 09/13/2021 at 10:38 Approved by: Duane Olivarez M.D. on 09/13/2021 at 10:40
[2021-09-13 10:14] LABS: Creatine Kinase 75 U/L (55-170)
[2021-09-13 10:17] LABS: Alanine Aminotransferase 83 IU/L (<50); Albumin 4.3 g/dL (3.5-5.0); Albumin Globulin Ratio 1.5 (1.0-2.8); Alkaline Phosphatase 159 U/L (38-126); Aspartate Aminotransferase 70 IU/L (17-59); BUN Creatinine Ratio 11.3 (6-22); Bilirubin Total 4.2 mg/dL (0.2-1.3); Blood Urea Nitrogen 9 mg/dL (9-20); Calcium 8.4 mg/dL (8.4-10.2); Carbon Dioxide 18 mmol/L (22-32); Chloride 107 mmol/L (98-107); Estimated Glomerular Filt Rate > 60 mL/min (>60); Globulin 2.8 g/dL (1.7-4.1); Glucose 117 mg/dL (70-100); HEMOLYSIS < 15 (0-50); Lipase 77 U/L (23-300); Potassium 3.5 mmol/L (3.4-5.1); Sodium 137 mmol/L (137-145); Total Protein 7.1 g/dL (6.3-8.2)
[2021-09-13] MEDS: PIPERACILLIN/TAZO 4.5 GM in SODIUM CHLORIDE 0.9% 100 ML IV (10:18)
[2021-09-13 10:27] LABS: Troponin I < 0.012 ng/mL (0.01-0.034)
--- NOTE | 2021-09-13 10:28 | DI.MRI.S_ITS ---
PROCEDURE: MR ABDOMEN WO CON INDICATIONS: high bili ab pain neg us fever TECHNIQUE: Coronal HASTE through the abdomen, axial 2-D FLASH in- and [id number], and breath-hold T2 FSE with fat saturation through the biliary system and pancreas. Oblique coronal and axial thin-slice HASTE, radial thick-slab HASTE centered on the extrahepatic bile ducts. Intravenous secretin: Not requested. COMPARISON: [facility], CT, CT ABDOMEN PELVIS W CON, 09/12/2021, 14:05. [facility], US, US ABDOMEN LIMITED, 09/12/2021, 12:46. [facility], US, US ABDOMEN LIMITED, 09/13/2021, 11:13. FINDINGS: Image quality: Excellent. Pancreas and biliary system: Intra- and extra-hepatic biliary ducts are non dilated. Pancreas is normal in morphology, without adjacent soft tissue edema. Pancreatic duct is normal in caliber, without developmental anomalies. Gallbladder is decompressed without wall thickening or stone. Other solid organs: Liver is normal in size and signal with a smooth margin. No cysts or masses. Spleen is normal in size. No adrenal nodules. Both kidneys are normal in size, without hydronephrosis. Nodes and vessels: No retroperitoneal or mesenteric adenopathy by size criteria. Aorta and inferior vena cava are normal in size. Bowel and peritoneum: Unenhanced bowel loops are normal in caliber. No free fluid. Lung bases: No basal pleural effusions. Heart size is normal. Bones and soft tissues: No ventral hernias. Bone marrow is of normal overall signal. IMPRESSION: 1. Normal MR of the abdomen. No explanation for elevated bilirubin. Dictated by: Kristen Shelton M.D. on 09/13/2021 at 11:49 Approved by: Kristen Shelton M.D. on 09/13/2021 at 11:57
[2021-09-13 10:32] LABS: Procalcitonin 2.19 ng/mL (<0.5)
[2021-09-13] MEDS: MORPHINE 4 MG/ML INJ IV (10:33)
[2021-09-13] MEDS: ONDANSETRON 4 MG/2 ML INJ IV ×2 (10:33→14:46)
[2021-09-13 11:04] LABS: Acetaminophen < 10 ug/mL (10-30)
[2021-09-13 13:07] LABS: COVID19 -Nasal RAPID Negative (Negative)
--- NOTE | 2021-09-13 13:23 | P.HP_ITS ---
History of Present Illness History of Present Illness Date Patient Seen: 09/13/21 Time Patient Seen: 15:00 Chief complaint: abd pain Narrative: Emiliano Everett is a 21-year-old male with no past medical history presenting with 2 days of chest pain, abdominal pain, fevers and nausea with vomiting. Patient notes he went to sleep 2 nights ago and developed gradual pressure-like substernal chest pain, headache then abdominal pain leading to vomiting. He presented to [facility] on 09/12 with temp of 101.7F and elevated WBC of 17.3, procal of 3, AST 190, ALT 113, and alk phos 189. RUQ US was normal and CT abd pelvis with only constipation. COVID and flu negative. He was discharged on Augmentin. He states he went home and continued to have chest and abdominal pain and vomited 5 times. He re-presented to the ER this morning with continuing similar symptoms and temp of 99.9F. MRCP performed which was normal. At the bedside patient states he currently has some abdominal pain with mild nausea but no chest pain or headache. He is hungry with an appetite. 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 He denies any sick contacts. He is up-to-date on vaccinations. Denies any risky sexual behavior. Notes that he is currently sexually active with 1 partner. Denies any urethral discharge, diarrhea, rashes, joint pain, sore throat, cough, or shortness of breath. States during his deployment he felt well and did not come down with any illnesses. He notes a history of occasional heartburn. No history of drug use, tobacco use, alcohol use but admits to smoking marijuana 2 years ago prior to joining the [facility]. No recent marijuana use. Patient History Family & Social History Family History (Updated 09/13/21 @ 16:30 by Paul Olson DO) Other GERD (gastroesophageal reflux disease) Social History: household members other Safety & Behavioral: Feels Safe in Current Yes Environment Been Physically Hurt or No Threatened By a Person Tobacco & Substance use: Smoking Status Never smoker alcohol intake frequency 0-2 drinks per day Substance Use Type does not use Meds Home Medications and Allergies Home Medications Medication Instructions Recorded Confirmed Type amoxicillin 875 mg-potassium 1 tab PO BID #14 tabs 09/12/21 09/13/21 Rx clavulanate 125 mg tablet Allergies Allergy/AdvReac Type Severity Reaction Status Date / Time No Known Drug Allergies Allergy Verified 09/12/21 10:45 Review of Systems Review of Systems Narrative: All other systems reviewed with the patient and are negative unless otherwise stated. Exam Vital Signs (past 8 hours): - 09/13/21 09:04 09/13/21 11:40 09/13/21 12:04 Temperature 99.9 F H Pulse Rate 56 L 62 64 Respiratory Rate 20 16 18 Blood Pressure 117/67 114/56 L 115/54 L Pulse Oximetry 100 97 97 Oxygen Delivery Method Room Air Room Air Room Air 09/13/21 12:22 09/13/21 12:30 Temperature 97.9 F Pulse Rate 55 L 57 L Respiratory Rate 18 16 Blood Pressure 106/51 L 117/55 L Pulse Oximetry 97 98 Oxygen Delivery Method Room Air Room Air Oxygen Delivery Method Room Air Narrative Exam Narrative: General:? Patient is thin, in no distress at this time. HEENT:? Normocephalic, atraumatic, extraocular muscles intact, oral pharynx is clear and mucous membranes are moist. Neck: supple and symmetric, trachea is midline, borderline enlarged right submandibular lymph node. Negative for JVD Chest:? Normal AP diameter and contour without kyphoscoliosis, no tachypnea, equal chest rise bilaterally. Lungs:? CTA b/l no wheezing rhonchi or rales. Cardio:?RRR, soft systolic murmur present Abdomen: Tenderness of epigastric and right lower quadrant regions. No guarding or rebound tenderness. Musculoskeletal:? Muscle strength and tone are equal within normal limits, no deformity. Extremities: No edema or joint effusions. No cyanosis or clubbing. Skin:? Pale,? Warm to touch,dry and intact without rashes, ulcerations or petechiae.? Neuro:? Alert and orientated x3,? sensation to touch intact in all extremities, no gross deficits noted of cranial nerves. Psych:? Patient has a well-kept appearance, appropriate affect, mental status attitude thought context and judgment are appropriate for age. Objective ECG Impression: Sinus bradycardia with no ST changes. Labs Result Diagrams: 09/13/21 09:20 09/13/21 09:20 Labs: Laboratory Results - last 24 hr 09/13/21 09/13/21 09/13/21 09:05 09:20 09:20 WBC 14.9 H RBC 4.24 L Hgb 12.6 L Hct 36.6 L MCV 86.4 MCH 29.7 MCHC 34.3 RDW 13.6 Plt Count 229 Neut % (Auto) 83.1 H Lymph % (Auto) 6.6 L Hendricks % (Auto) 9.4 Eos % (Auto) 0.8 L Baso % (Auto) 0.1 Neut # (Auto) 28955 H Lymph # (Auto) 1000 L [place]ricks # (Auto) 1400 H Eos # (Auto) 100 Baso # (Auto) 0 Sodium 137 Potassium 3.5 Chloride 107 Carbon Dioxide 18 L BUN 9 Creatinine 0.80 Estimated GFR > 60 BUN/Creatinine Ratio 11.3 Glucose 117 H Lactate Calcium 8.4 Total Bilirubin 4.2 H AST 70 H ALT 83 H Alkaline Phosphatase 159 H Total Creatine Kinase CK-MB (CK-2) CK-MB (CK-2) Rel Index Troponin I Total Protein 7.1 Albumin 4.3 Globulin 2.8 Albumin/Globulin Ratio 1.5 Lipase 77 D Procalcitonin 2.19 H Urine Color Yellow Urine Appearance Clear Urine pH 7.5 Ur Specific Patterson 1.010 Urine Protein Trace H Urine Glucose (UA) Negative Urine Ketones 3+ H Urine Occult Blood Negative Urine Nitrate Negative Urine Bilirubin 2+ H Ur Bilirubin Confirm Positive H Urine Urobilinogen >=8.0 Ur Leukocyte Esterase Negative Urine RBC None seen Urine WBC 0-1/hpf Ur Squamous Epith Cells 0-1 /hpf Urine Bacteria Occasional (0-1) Ur Culture Indicated? Cult not indicated Acetaminophen SARS-CoV-2 (PCR) 09/13/21 09/13/21 09/13/21 09:20 09:20 09:20 WBC RBC Hgb Hct MCV MCH MCHC RDW Plt Count Neut % (Auto) Lymph % (Auto) Hendricks % (Auto) Eos % (Auto) Baso % (Auto) Neut # (Auto) Lymph # (Auto) [place]ricks # (Auto) Eos # (Auto) Baso # (Auto) Sodium Potassium Chloride Carbon Dioxide BUN Creatinine Estimated GFR BUN/Creatinine Ratio Glucose Lactate 1.4 Calcium Total Bilirubin AST ALT Alkaline Phosphatase Total Creatine Kinase 75 CK-MB (CK-2) TNP CK-MB (CK-2) Rel Index TNP Troponin I < 0.012 Total Protein Albumin Globulin Albumin/Globulin Ratio Lipase Procalcitonin Urine Color Urine Appearance Urine pH Ur Specific Patterson Urine Protein Urine Glucose (UA) Urine Ketones Urine Occult Blood Urine Nitrate Urine Bilirubin Ur Bilirubin Confirm Urine Urobilinogen Ur Leukocyte Esterase Urine RBC Urine WBC Ur Squamous Epith Cells Urine Bacteria Ur Culture Indicated? Acetaminophen < 10 SARS-CoV-2 (PCR) 09/13/21 12:19 WBC RBC Hgb Hct MCV MCH MCHC RDW Plt Count Neut % (Auto) Lymph % (Auto) Hendricks % (Auto) Eos % (Auto) Baso % (Auto) Neut # (Auto) Lymph # (Auto) [place] # (Auto) Eos # (Auto) Baso # (Auto) Sodium Potassium Chloride Carbon Dioxide BUN Creatinine Estimated GFR BUN/Creatinine Ratio Glucose Lactate Calcium Total Bilirubin AST ALT Alkaline Phosphatase Total Creatine Kinase CK-MB (CK-2) CK-MB (CK-2) Rel Index Troponin I Total Protein Albumin Globulin Albumin/Globulin Ratio Lipase Procalcitonin Urine Color Urine Appearance Urine pH Ur Specific Patterson Urine Protein Urine Glucose (UA) Urine Ketones Urine Occult Blood Urine Nitrate Urine Bilirubin Ur Bilirubin Confirm Urine Urobilinogen Ur Leukocyte Esterase Urine RBC Urine WBC Ur Squamous Epith Cells Urine Bacteria Ur Culture Indicated? Acetaminophen SARS-CoV-2 (PCR) Negative Assessment & Plan Assessment & Plan narrative: Emiliano Everett is a 21-year-old male with no past medical history presenting with 2 days of chest pain, abdominal pain, fevers and nausea with vomiting. # sepsis, acute present on admission -WBC 17.3 and fever of 101.7 F on 09/12. Procalcitonin elevated at 2.19. -unclear source but suspect viral etiology. COVID and flu negative. -no diarrhea to suggest gastroenteritis, no meningeal signs -with elevated LFTs and T bili, possible that he had a biliary gallstone which passed prior to imaging. -continue Zosyn for now -initial blood cultures from 09/12 NGTD, follow-up repeat blood cultures # transaminitis, elevated alk-phos and hyperbilirubinemia, acute present on admission -AST 190, ALT 113 and alk-phos 189, now downtrending -T bili 3.5 and increased to 4.2 today, direct bilirubin 2.3 -unclear etiology, checking hepatitis panel, CMV, HIV and EBV -negative MRCP -trend hepatic panel # nausea and vomiting, acute -antiemetics as needed -start Protonix for possible GERD # sinus bradycardia, acute -heart rate in low 50s -ECG with heart rate of 49 but no evidence of heart block or arrhythmia -monitor Code status is Full code. Proxy is his parents. I have reviewed home meds and used all available resources to reconcile the home meds. Time Spent With Patient Critical Care time: I spent a total of [] minutes of critical care time on this patient's care today; this time is exclusive of procedural time.
[2021-09-13 14:30] LABS: Bilirubin Direct 2.3 mg/dL (0.0-0.4)
[2021-09-13] MEDS: KETOROLAC 30 MG/ML VIAL IV ×2 (14:46→19:33)
[2021-09-13 15:46] LABS: Monotest Negative (Negative)
--- NOTE | 2021-09-13 16:23 | PC.NURSE ---
Patient denies pain. Given toradol and some nausea medication and he feels better. Ate some lunch and is resting comfortably. EKG done and results given to .
[2021-09-13 17:05] LABS: HIV 1 & 2 Ab/Ag 4th Gen Combo NEGATIVE (NEGATIVE)
[2021-09-13] MEDS: PANTOPRAZOLE DR 40 MG TABLET PO (17:37)
[2021-09-13] MEDS: PIPERACILLIN/TAZO 3.375 GM in SODIUM CHLORIDE 0.9% 100 ML IV (17:37)
[2021-09-13] MEDS: SODIUM CHLORIDE 0.9% FLUSH 10 ML IV (19:33)
--- NOTE | 2021-09-13 21:04 | PC.NURSE ---
Addendum entered by Tatyana Darnell R.N. 09/14/21 06:52: Patient complaining of 7/10 chest pain across both sides of chest. Shivering and skin warm to touch. Medicated with Toradol. Temp 100.9. Complains of SOB but RA sat 100% and respirations are nonlabored. BP 131/63 with HR of 80. INSPECTOR TIMERS, Jin, informed. Original Note: Patient is alert and oriented. Breath sounds CTA with RA sat of 98%. HRR but bradycardic with rate of 52 bpm apically. Denied nausea except when eating. BT hypoactive. Is tender throughout but indicates more tenderness in epigastric area and RLQ of abdomen. States he is having 5/10 back and abdominal pain and chest discomfort with deep breathing; medicated earlier with scheduled Toradol and pain decreased to 3/10. Is independent with mobility. Voiding without dysuria; urine is dark se. Fall risk score is low.
[2021-09-14] VITALS (11 sets, daily range): BP systolic 117–139; BP diastolic 54–68; PULSE 63–89; RESP 12–18; TEMP 36.7–38.3; O2SAT 93–100
[2021-09-14] MEDS: KETOROLAC 30 MG/ML VIAL IV ×4 (00:55→18:04)
[2021-09-14] MEDS: SODIUM CHLORIDE 0.9% FLUSH 10 ML IV ×4 (00:56→20:44)
[2021-09-14] MEDS: PIPERACILLIN/TAZO 3.375 GM in SODIUM CHLORIDE 0.9% 100 ML IV ×3 (02:09→17:10)
[2021-09-14 05:29] LABS: HBsAg Screen Negative (Negative); Hepatitis A Antibody IgM Negative (Negative); Hepatitis B Core Antibody IgM Negative (Negative); Hepatitis C Antibody <0.1 s/co ratio (0.0-0.9)
[2021-09-14 06:15] LABS: Add Manual Diff / Slide Review NO; Basophils Absolute Auto 0 /uL (0-100); Basophils Percent Auto 0.2 % (0-2); Eosinophils Absolute Auto 500 /uL (0-450); Eosinophils Percent Auto 3.9 % (2-4); Hematocrit 33.5 % (41-53); Hemoglobin 11.4 g/dL (13.5-17.5); Lymphocytes Absolute Auto 2100 /uL (1100-4500); Lymphocytes Percent Auto 17.3 % (25-40); Mean Corpuscular HGB Conc 33.9 % (30-36); Mean Corpuscular Hemoglobin 29.4 PG (26-34); Mean Corpuscular Volume 86.8 fL (80-100); Monocytes Absolute Auto 1300 /uL (0-900); Monocytes Percent Auto 10.4 % (3-14); Neutrophils Absolute Auto 8200 /uL (1500-7000); Neutrophils Percent Auto 68.2 % (50-75); Platelet Count 222 X10^3/uL (150-400); Red Blood Cell Count 3.87 X10^6/uL (4.5-5.9); Red Cell Distribution Width 13.8 % (11.6-14.8); White Blood Cell Count 12.1 X10^3/uL (4.5-11.0)
[2021-09-14 06:31] LABS: HEMOLYSIS < 15 (0-50)
[2021-09-14 06:36] LABS: Alanine Aminotransferase 66 IU/L (<50); Albumin 3.3 g/dL (3.5-5.0); Albumin Globulin Ratio 1.2 (1.0-2.8); Alkaline Phosphatase 130 U/L (38-126); Aspartate Aminotransferase 47 IU/L (17-59); Bilirubin Conjugated 1.1 md/dL (0.0-0.3); Bilirubin Total 3.2 mg/dL (0.2-1.3); Bilirubin Unconjugated 1.2 mg/dL (0.0-1.1); Blood Urea Nitrogen 8 mg/dL (9-20); Calcium 8.2 mg/dL (8.4-10.2); Carbon Dioxide 25 mmol/L (22-32); Chloride 110 mmol/L (98-107); Estimated Glomerular Filt Rate > 60 mL/min (>60); Globulin 2.8 g/dL (1.7-4.1); Glucose 96 mg/dL (70-100); Potassium 4.1 mmol/L (3.4-5.1); Sodium 141 mmol/L (137-145); Total Protein 6.1 g/dL (6.3-8.2)
[2021-09-14] MEDS: PANTOPRAZOLE DR 40 MG TABLET PO (06:39)
[2021-09-14] MEDS: ACETAMINOPHEN 325 MG TABLET 650 MG PO (06:59)
[2021-09-14 07:07] LABS: Procalcitonin 1.89 ng/mL (<0.5)
[2021-09-14] MEDS: BISACODYL 5 MG TABLET 10 MG PO (09:04)
[2021-09-14] MEDS: SENNOSIDES 8.6 MG TABLET 17.2 MG PO ×2 (09:04→20:44)
[2021-09-14] MEDS: DOCUSATE 100 MG CAPSULE 200 MG PO ×2 (09:04→20:45)
[2021-09-14] MEDS: MAGNESIUM HYDROXIDE 30 ML UDC PO (09:04)
[2021-09-14] MEDS: polyethylene glycoL 3350 17 GM POWD.PACK PO ×2 (09:04→20:48)
--- NOTE | 2021-09-14 09:17 | DI.ECHO.S_ITS ---
[facility]---------+ [facility] +---------+ : : [address] : : : : [id number] : : : : Phone: [phone]+ Echocardiogram Report + + :Name: NAGELA JOYNER Study Date: 09/14/2021 Height: 67 in : :[facility] ReadingLocation: Weight: 130 lb : : Gender: Male BSA: 1.7 m2 : :: 2000 Age: 21 yrs BP: 131/63 mmHg: :Reason For Study: HEART MURMUR : :Ordering Physician: KWAME PRIETO Performed By: Claire Montes : :Referring: KWAME PRIETO : + + Interpretation Summary 1) Normal left ventricular thickness, size, wall motion, and systolic function (EF 60-65%). 2) Normal right ventricular size and function. 3) No significant valvular abnormalities. 4) No prior Echo available for comparison. Procedure: A two-dimensional transthoracic echocardiogram with color flow and Doppler was performed. The study quality was technically good. There is no prior echocardiogram noted for this patient. The patient was in sinus rhythm with heart rates between 60-80 bpm during the exam. Left Ventricle: The left ventricle is normal in size and wall thickness. The ejection fraction is estimated to be 60-65%. Left ventricular systolic function appears normal without focal wall motion abnormalities. Right Ventricle: The right ventricle is normal in size and function. Atria: The left atrial size is normal. Right atrial size is normal. There is no Doppler evidence for an interatrial shunt. Mitral Valve: The mitral valve is normal in structure and function. There is trace mitral regurgitation. Aortic Valve: The aortic valve is trileaflet. The aortic valve opens well. There is no aortic valve stenosis. No aortic regurgitation is present. Tricuspid Valve: The tricuspid valve is normal in structure and function. There is trace tricuspid regurgitation. Pulmonary artery pressures cannot be estimated because of the lack of a measurable TR jet velocity. Pulmonic Valve: The pulmonic valve leaflets are thin and pliable; valve motion is normal. There is no pulmonic valvular regurgitation. Great Vessels: The aortic root is normal size. The dimensions of the ascending aorta are normal. The IVC is dilated (diameter is greater than 2.1 cm) and it collapses less than 50% with a sniff. This suggests a high right atrial pressure of 15 mm Hg. Pericardium/ Pleura There is no pericardial effusion. There is no pleural effusion. MMode/2D Measurements & Calculations LVIDd: 4.9 cm LVOT diam: 2.0 cm LVIDs: 3.2 cm Ao root diam: 2.1 cm FS: 34.3 % asc Aorta Diam: 2.5 cm EPSS: 1.1 cm Ao Arch Diam (Prox Trans): 2.1 cm IVSd: 0.76 cm LVPWd: 0.91 cm LV barba. diameter/BSA (cm/m^2): 2.9 LV sys. diameter/BSA (cm/m^2): 1.9 LA A2 area: 16.6 cm2 RA long axis: 4.3 cm LA A4 area: 16.1 cm2 RA area: 17.0 cm2 LA length (vol): 4.4 cm RA vol: 56.7 ml LA vol: 52.1 ml RA : 33.7 ml/m2 LA vol index: 31.0 ml/m2 IVC diam: 2.1 cm RVD1 (basal): 3.6 cm RVD2 (mid): 3.4 cm TAPSE: 2.3 cm Doppler Measurements & Calculations Ao V2 max: 169.3 cm/sec LVOT Max Jah: 87.9 cm/sec Ao V2 mean: 120.7 cm/sec LV V1 max P.1 mmHg Ao max P.5 mmHg LV V1 VTI: 17.0 cm Ao mean P.4 mmHg FLORENCIA(I,D): 1.5 cm2 Ao V2 VTI: 35.4 cm FLORENCIA(V,D): 1.7 cm2 sev ratio: 0.48 FLORENCIA indexed to BSA (cm^2/m^2): 0.92 MV E max jah: 85.8 cm/sec PA V2 max: 108.4 cm/sec MV A max jah: 62.0 cm/sec PA V2 mean: 73.1 cm/sec MV E/A: 1.4 PA mean P.4 mmHg Med Peak E' Jah: 11.1 cm/sec PA Accel Time: 0.11 sec E/E' med: 7.8 Lat Peak E' Jah: 14.7 cm/sec E/E' lat: 5.8 E/e' average: 6.8 MV dec time: 0.21 sec SV(LVOT): 54.7 ml Reading Physician:01:36 PM
--- NOTE | 2021-09-14 09:41 | DI.US.S_ITS ---
PROCEDURE: US ABDOMEN LIMITED INDICATIONS: eval for appy TECHNIQUE: Real-time focused scanning was performed of the abdomen with attention to the appendix, with image documentation. COMPARISON: [facility], MR, MR ABDOMEN WO CON, 09/13/2021, 10:41. [facility], CT, CT ABDOMEN PELVIS W CON, 09/12/2021, 14:05. [facility], US, US ABDOMEN LIMITED, 09/13/2021, 11:13. FINDINGS: Appendix visualization: The appendix is not visualized. Associated findings: Nearby free fluid: Absent Lymphadenopathy: A few small nonspecific right lower quadrant lymph nodes are seen, largest of which measures up to 0.7 cm in long axis diameter. Tenderness on exam: Present Gallbladder wall appears contracted, which may be related to the timing of the most recent meal. IMPRESSION: The appendix is not visualized, and therefore acute appendicitis cannot be excluded. Dictated by: Moshe Lopez M.D. on 09/14/2021 at 11:17 Approved by: Moshe Lopez M.D. on 09/14/2021 at 11:21
--- NOTE | 2021-09-14 14:10 | CM.DANOTE ---
Patient is a 21 yo male who was admitted on 09/13/21 for Abd and Chest pain. Pt has [employer] for insurance and his PCP is on the [facility]. EMR was reviewed. 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 Per Surgeon Consult, pt to have an ultrasound to rule out possible appendicitis. Awaiting imaging and recommendations from Surgeon. Pt lives in [facility] and is active and independent at baseline and family lives in [place] where his permanent address is located. Pt has sig other and does not use DME for ambulation and drives and no anticipated d/c planning needs pending possible surgical intervention. Plan: SW to follow closely for Surgeon recommendations and confirm safe plan of d/c home via Sig Other or friend transport and any further identified discharge planning needs. 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 No Advance Directives on File No History Provided By Patient,Medical Record Has Patient been admitted in last 30 No days? Prior Living Arrangements House Household Members other Type of transporation used prior to Drives own vehicle admit Facility Name Admitted From: [facility] Independent with ADL's Yes Is patient alert and oriented? Yes Caregiver for Another No Barriers to Discharge No Discharge Plan Home Transportation Arrangement Likely friend or Sig Other to transport at d/c Referrals Initiated None needed Additional Comment Pending possible surgical intervention Review Status In Process Please Provide Date Initial DC 09/14/21 Assessment Was Performed Next Review Type Continued Stay Review
--- NOTE | 2021-09-14 18:23 | PM.PN.1 ---
Subjective Subjective Date Patient Seen: 09/14/21 Interval history: 21 y/o male admitted for qa constellation of symptoms including Sepsis, chest pain, elevated LFT's with negative work up thus far. He continues to complain of diffuse abdominal pain, He has intermittant headaches but no stiffness of his neck Exam Vital Signs (past 8 hours): - 09/14/21 10:26 09/14/21 12:10 09/14/21 14:00 Temperature 98.4 F Pulse Rate 80 Respiratory Rate 16 Blood Pressure 117/63 Pulse Oximetry 99 98 99 Oxygen Delivery Method Room Air Room Air Oxygen Flow Rate 0 09/14/21 17:57 Temperature Pulse Rate Respiratory Rate Blood Pressure Pulse Oximetry 99 Oxygen Delivery Method Room Air Oxygen Flow Rate Oxygen Delivery Method Room Air Oxygen Flow Rate 0 Narrative Exam Narrative: Ill appearing young man lying in bed HENMT Other: NC/AT, Neck is supple, no nuchal rigidity or tenderness Resp Other: Lungs: clear to auscultation Cardio Other: CV: RRR nl Sl S2 GI Other: Abd: mild right lower quadrant tenderness, no rebound, no board like rigidity, no palpable masses, no HSM Extrem Other: no edema Objective Labs Result Diagrams: 09/14/21 05:45 09/14/21 05:45 Labs: Laboratory Results - last 24 hr 09/13/21 09/14/21 09/14/21 12:00 05:45 05:45 WBC 12.1 H RBC 3.87 L Hgb 11.4 L Hct 33.5 L MCV 86.8 MCH 29.4 MCHC 33.9 RDW 13.8 Plt Count 222 Neut % (Auto) 68.2 Lymph % (Auto) 17.3 L [place] % (Auto) 10.4 Eos % (Auto) 3.9 Baso % (Auto) 0.2 Neut # (Auto) 8200 H Lymph # (Auto) 2100 [place] # (Auto) 1300 H Eos # (Auto) 500 H Baso # (Auto) 0 Sodium 141 Potassium 4.1 Chloride 110 H Carbon Dioxide 25 BUN 8 L Creatinine 1.00 Estimated GFR > 60 BUN/Creatinine Ratio 8.0 Glucose 96 Calcium 8.2 L Magnesium 2.0 Total Bilirubin 3.2 H Conjugated Bilirubin 1.1 H Unconjugated Bilirubin 1.2 H AST 47 ALT 66 H Alkaline Phosphatase 130 H Total Protein 6.1 L Albumin 3.3 L Globulin 2.8 Albumin/Globulin Ratio 1.2 Procalcitonin 1.89 H Hepatitis A IgM Ab Negative Hep Bs Antigen Negative Hep B Core IgM Ab Negative Hepatitis C Antibody <0.1 Hep C Ab Signal/Cutoff [facility] Family History (Updated 09/13/21 @ 16:30 by Paul Olson DO) Other GERD (gastroesophageal reflux disease) Social History household members: other Smoking Status: Never smoker Assessment & Plan Assessment & Plan narrative: sepsis, acute present on admission -WBC 17.3 and fever of 101.7 F on 09/12.? Procalcitonin elevated at 2.19. -unclear source but suspect viral etiology.? COVID and flu negative. -no diarrhea to suggest gastroenteritis, no meningeal signs -with elevated LFTs and T bili, possible that he had a biliary gallstone which passed prior to imaging. -continue Zosyn for now -initial blood cultures from 09/12 NGTD, follow-up repeat blood cultures -repeat ultrasound does not reveal appendix, doubt appendicitis -will treat for intrabdominal infection -repeat labs in am # transaminitis, elevated alk-phos and hyperbilirubinemia, acute present on admission -AST 190, ALT 113 and alk-phos 189, now downtrending -T bili 3.5 and increased to 4.2 today, direct bilirubin 2.3 -unclear etiology, checking hepatitis panel, CMV, HIV and EBV -negative MRCP -trend hepatic panel -possible bilary colic, will continue to follow # nausea and vomiting, acute -antiemetics as needed -start Protonix for possible GERD # sinus bradycardia, acute -heart rate in low 50s -ECG with heart rate of 49 but no evidence of heart block or arrhythmia -monitor -not pathological likely related to age Time Spent With Patient Critical Care time: I spent a total of [] minutes of critical care time on this patient's care today; this time is exclusive of procedural time.
[2021-09-14] MEDS: OXYCODONE IR 10 MG TABLET 5 MG PO (20:51)
[2021-09-15] VITALS (14 sets, daily range): BP systolic 112–142; BP diastolic 61–76; PULSE 80–99; RESP 16–18; TEMP 36.6–38.2; O2SAT 96–100
[2021-09-15] MEDS: PIPERACILLIN/TAZO 3.375 GM in SODIUM CHLORIDE 0.9% 100 ML IV ×3 (01:58→17:14)
[2021-09-15] MEDS: KETOROLAC 30 MG/ML VIAL IV ×4 (01:58→18:22)
[2021-09-15 04:43] LABS: Hemoglobin A1C% w Est Avg Glu 5.1 % (4.0-6.0)
--- NOTE | 2021-09-15 05:27 | PC.NURSE ---
Addendum entered by Vance Crowe R.N. 09/15/21 05:30: Safety precautions observed. Call thornton within reach. Original Note: Shift Note: Patient is alert and orientedx4, denies any pain/discomfort, at room air, vital signs are stable. Breath sounds are clear bilaterally. Active bowel tones and patient stated multiple bowel movement.
[2021-09-15 06:02] LABS: Add Manual Diff / Slide Review NO; Basophils Absolute Auto 0 /uL (0-100); Basophils Percent Auto 0.3 % (0-2); Eosinophils Absolute Auto 100 /uL (0-450); Eosinophils Percent Auto 0.7 % (2-4); Hematocrit 33.9 % (41-53); Hemoglobin 11.4 g/dL (13.5-17.5); Lymphocytes Absolute Auto 1100 /uL (1100-4500); Lymphocytes Percent Auto 7.3 % (25-40); Mean Corpuscular HGB Conc 33.5 % (30-36); Mean Corpuscular Hemoglobin 28.9 PG (26-34); Mean Corpuscular Volume 86.4 fL (80-100); Monocytes Absolute Auto 1100 /uL (0-900); Monocytes Percent Auto 7.3 % (3-14); Neutrophils Absolute Auto 12800 /uL (1500-7000); Neutrophils Percent Auto 84.4 % (50-75); Platelet Count 267 X10^3/uL (150-400); Red Blood Cell Count 3.93 X10^6/uL (4.5-5.9); Red Cell Distribution Width 13.8 % (11.6-14.8); White Blood Cell Count 15.1 X10^3/uL (4.5-11.0)
[2021-09-15 06:14] LABS: Alanine Aminotransferase 57 IU/L (<50); Albumin 3.3 g/dL (3.5-5.0); Albumin Globulin Ratio 1.1 (1.0-2.8); Alkaline Phosphatase 156 U/L (38-126); Aspartate Aminotransferase 35 IU/L (17-59); BUN Creatinine Ratio 7.6 (6-22); Bilirubin Conjugated 0.9 md/dL (0.0-0.3); Bilirubin Total 3.3 mg/dL (0.2-1.3); Bilirubin Unconjugated 1.3 mg/dL (0.0-1.1); Blood Urea Nitrogen 7 mg/dL (9-20); Carbon Dioxide 23 mmol/L (22-32); Chloride 104 mmol/L (98-107); Estimated Glomerular Filt Rate > 60 mL/min (>60); Globulin 2.9 g/dL (1.7-4.1); Glucose 87 mg/dL (70-100); HEMOLYSIS < 15 (0-50); Magnesium 1.8 mg/dL (1.6-2.3); Potassium 3.6 mmol/L (3.4-5.1); Sodium 136 mmol/L (137-145); Total Protein 6.2 g/dL (6.3-8.2)
[2021-09-15] MEDS: PANTOPRAZOLE DR 40 MG TABLET PO (06:40)
[2021-09-15] MEDS: ACETAMINOPHEN 325 MG TABLET 650 MG PO (10:11)
--- NOTE | 2021-09-15 10:15 | PM.CN ---
History of Present Illness Consult details Date Patient Seen: 09/15/21 Time Patient Seen: 10:15 Chief complaint: abd pain Reason for consult: persistent pain, fever and WBC Requesting provider: Yaneli Li Narrative: Patient admitted for complaints of abdominal pain mostly right sided. Had fevers and fatigue with decreased appetite. Work up has been unimpressive so far. I reviewed abd MRI, US and CT scan. Meds Home Medications and Allergies Home Medications Medication Instructions Recorded Confirmed Type amoxicillin 875 mg-potassium 1 tab PO BID #14 tabs 09/12/21 09/13/21 Rx clavulanate 125 mg tablet Allergies Allergy/AdvReac Type Severity Reaction Status Date / Time No Known Drug Allergies Allergy Verified 09/12/21 10:45 Review of Systems Review of Systems ROS: Yes All systems reviewed with the patient and are negative except as otherwise documented Exam Vital Signs (past 8 hours): - 09/15/21 06:00 09/15/21 05:47 09/15/21 10:11 Temperature 100.4 F H 100.5 F H Pulse Rate 96 H Respiratory Rate 16 Blood Pressure 121/61 Pulse Oximetry 96 96 Oxygen Delivery Method Room Air Oxygen Flow Rate 0 Oxygen Delivery Method Room Air Oxygen Flow Rate 0 Narrative Exam Narrative: young, thin male in no acute distress. No guarding, abdomen is flat, non distended. Objective Labs Result Diagrams: 09/15/21 05:39 09/15/21 05:39 Labs: Laboratory Results - last 24 hr 09/14/21 09/15/21 09/15/21 05:45 05:39 05:39 WBC 15.1 H RBC 3.93 L Hgb 11.4 L Hct 33.9 L MCV 86.4 MCH 28.9 MCHC 33.5 RDW 13.8 Plt Count 267 Neut % (Auto) 84.4 H Lymph % (Auto) 7.3 L [place] % (Auto) 7.3 Eos % (Auto) 0.7 L Baso % (Auto) 0.3 Neut # (Auto) 09155 H Lymph # (Auto) 1100 [place] # (Auto) 1100 H Eos # (Auto) 100 Baso # (Auto) 0 Sodium 136 L Potassium 3.6 Chloride 104 Carbon Dioxide 23 BUN 7 L Creatinine 0.92 Estimated GFR > 60 BUN/Creatinine Ratio 7.6 Glucose 87 Hemoglobin A1c 5.1 Calcium 8.0 L Magnesium 1.8 Total Bilirubin 3.3 H Conjugated Bilirubin 0.9 H Unconjugated Bilirubin 1.3 H AST 35 ALT 57 H Alkaline Phosphatase 156 H Total Protein 6.2 L Albumin 3.3 L Globulin 2.9 Albumin/Globulin Ratio 1.1 PFSH Family History Other GERD (gastroesophageal reflux disease) Social History household members: other Tobacco & Substance Use Smoking Status: Never smoker Assessment & Plan Assessment & Plan narrative: Focused exam on abdomen and reviewed workup. I do not believe this is appendicitis or cholecystitis. There is some concern for areas of thicken bowel and cystitis, but his fevers and WBC are well beyond the response that might produce. Plan: no indication for surgery. Surgery to sign off, please consult if there are further questions. COVID-19 COVID-19 status: Negative Time Spent With Patient Time with patient: less than 30 minutes Critical Care time: I spent a total of [] minutes of critical care time on this patient's care today; this time is exclusive of procedural time.
[2021-09-15] MEDS: LACTATED RINGERS 1,000 ML 100 ML IV (12:37)
[2021-09-15 13:32] LABS: Procalcitonin 3.47 ng/mL (<0.5)
--- NOTE | 2021-09-15 13:48 | CM.DPC ---
DCP Cont: Per Surgeon Consult, does not appear to be appendicitis or cholecystitis and currently no need for surgical intervention and therefore Surgeon signing off for now. Still unclear etiology of sepsis. Pt not medically stable to d/c yet today. Plan: SW to follow closely for Hospitalist recommendations and medical management towards determining medical POC. Discharge needs at this time unclear. SW to continue to follow. JOSE G Josue
--- NOTE | 2021-09-15 15:55 | PM.PN.1 ---
Subjective Subjective Date Patient Seen: 09/15/21 Time Patient Seen: 15:57 Interval history: Patient continues to complain of abdominal pain. He continues to have fevers. He has a poor appetite Exam Vital Signs (past 8 hours): - 09/15/21 10:11 09/15/21 09:00 09/15/21 10:50 Temperature 100.5 F H 99.7 F H 100.0 F H Pulse Rate 87 Respiratory Rate 18 Blood Pressure 126/73 Pulse Oximetry 98 Oxygen Delivery Method Oxygen Flow Rate 0 09/15/21 11:16 09/15/21 11:18 09/15/21 14:00 Temperature 100 F H 98.7 F Pulse Rate 84 Respiratory Rate 18 Blood Pressure 112/63 Pulse Oximetry 98 98 Oxygen Delivery Method Room Air Oxygen Flow Rate 0 09/15/21 14:52 Temperature Pulse Rate Respiratory Rate Blood Pressure Pulse Oximetry 99 Oxygen Delivery Method Room Air Oxygen Flow Rate Oxygen Delivery Method Room Air Oxygen Flow Rate 0 Narrative Exam Narrative: Ill appearing male lying in bed Resp Other: Lungs: clear to auscultation Cardio Other: RRR nl Sl S2 2/6 WILLIAM GI Other: Abd: Scaphoid, soft, diffusely tender, more tender in the right lower quadrant, mild mid epigastric tenderness, no right upper quadrant ternderness. no masses palpated, no board like rigidty, no rebound tenderness Extrem Other: no edema Objective Labs Result Diagrams: 09/15/21 05:39 09/15/21 05:39 Labs: Laboratory Results - last 24 hr 09/14/21 09/15/21 09/15/21 05:45 05:37 05:39 WBC 15.1 H RBC 3.93 L Hgb 11.4 L Hct 33.9 L MCV 86.4 MCH 28.9 MCHC 33.5 RDW 13.8 Plt Count 267 Neut % (Auto) 84.4 H Lymph % (Auto) 7.3 L [place] % (Auto) 7.3 Eos % (Auto) 0.7 L Baso % (Auto) 0.3 Neut # (Auto) 02496 H Lymph # (Auto) 1100 [place] # (Auto) 1100 H Eos # (Auto) 100 Baso # (Auto) 0 Sodium Potassium Chloride Carbon Dioxide BUN Creatinine Estimated GFR BUN/Creatinine Ratio Glucose Hemoglobin A1c 5.1 Calcium Magnesium Total Bilirubin Conjugated Bilirubin Unconjugated Bilirubin AST ALT Alkaline Phosphatase Total Protein Albumin Globulin Albumin/Globulin Ratio Procalcitonin 3.47 H 09/15/21 05:39 WBC RBC Hgb Hct MCV MCH MCHC RDW Plt Count Neut % (Auto) Lymph % (Auto) [place] % (Auto) Eos % (Auto) Baso % (Auto) Neut # (Auto) Lymph # (Auto) [place] # (Auto) Eos # (Auto) Baso # (Auto) Sodium 136 L Potassium 3.6 Chloride 104 Carbon Dioxide 23 BUN 7 L Creatinine 0.92 Estimated GFR > 60 BUN/Creatinine Ratio 7.6 Glucose 87 Hemoglobin A1c Calcium 8.0 L Magnesium 1.8 Total Bilirubin 3.3 H Conjugated Bilirubin 0.9 H Unconjugated Bilirubin 1.3 H AST 35 ALT 57 H Alkaline Phosphatase 156 H Total Protein 6.2 L Albumin 3.3 L Globulin 2.9 Albumin/Globulin Ratio 1.1 Procalcitonin [facility] Family History Other GERD (gastroesophageal reflux disease) Social History household members: other Smoking Status: Never smoker Assessment & Plan Assessment & Plan narrative: sepsis, acute present on admission -WBC 17.3 and fever of 101.7 F on 09/12.? Procalcitonin elevated at 2.19. -unclear source , given elevated procalcitonin, viral etiology unlikely? COVID and flu negative. -no diarrhea to suggest gastroenteritis, no meningeal signs -with elevated LFTs and T bili, possible that he had a biliary gallstone which passed prior to imaging. -continue Zosyn for now -initial blood cultures from 09/12 NGTD, follow-up repeat blood cultures -repeat ultrasound does not reveal appendix, doubt appendicitis -will treat for intrabdominal infection -repeat labs in am -Patient with persistant fever, abdominal pain and elevated LFT's -will obtain HIDA scan, Bacterial panel via PCR, and Respiratory panel -continue antibiotics, follow serial exams # transaminitis, elevated alk-phos and hyperbilirubinemia, acute present on admission -AST 190, ALT 113 and alk-phos 189, now downtrending -T bili 3.5 and increased to 4.2 today, direct bilirubin 2.3 -unclear etiology, checking hepatitis panel, CMV, HIV and EBV -negative MRCP -trend hepatic panel -possible bilary colic, will continue to follow -Hida scan tomorrow # nausea and vomiting, acute -antiemetics as needed -start Protonix for possible GERD # sinus bradycardia, acute -heart rate in low 50s -ECG with heart rate of 49 but no evidence of heart block or arrhythmia Time Spent With Patient Critical Care time: I spent a total of [] minutes of critical care time on this patient's care today; this time is exclusive of procedural time.
--- NOTE | 2021-09-15 17:23 | DIET.CONS2 ---
Addendum entered by Lalitha Bateman 09/15/21 17:29: upon literature review, excessive use of preworkout supplements can lead to elevated liver enzymes and cholestatic hepatitis. Original Note: Dietary Inpatient Consultation Note Admission Date: 09/13/2021 12:14 RD visited pt per request of Unit Host. Pt worried his pre-workout drink caused issues leading to admission. He admits he does not measure it, just pours a bunch in his water. Common pre-workout ingredients include caffeine, BCAAs, L-Citrulline, beta-alanine, and creatine. Pt concerned he is constipated. Pt worked with unit host to find soluble fiber foods for hospital meals. RD educated pt on soluble fiber in the diet and importance of staying hydrated. Collaborated c pt on improvements to current eating to support pts fitness goals as well as healthy digestion. Strongly recc pt dose supplements appropriately per packaging. Diet: 09/13/21 Dinner Regular [General (Regular) Diet] Diet Modifications: Nutrition Percent Meal Consumed pt refused breakfast 09/15/21 10:32 Percent Meal Consumed 10% chicken noodle soup 09/14/21 15:42 Percent Meal Consumed 50% 09/14/21 09:00 Electronically Signed by: Lalitha Bateman 09/15/21 17:23 Clinical Dietitian [address] [address]
[2021-09-15 17:45] LABS: Adenovirus Not Detected (Not Detect); B. parapertussis Not Detected (Not Detecte); Bordetella pertussis Not Detected (Not Detecte); Chlamydophila pneumoniae Not Detected (Not Detect); Coronavirus 229E Not Detected (Not Detect); Coronavirus HKU1 Not Detected (Not Detect); Coronavirus NL 63 Not Detected (Not Detect); Coronavirus OC43 Not Detected (Not Detect); Human Metapneumovirus Not Detected (Not Detect); Human Rhinovirus/Enterovirus Not Detected (Not Detect); Influenza A Not Detected (Not Detect); Influenza B Not Detected (Not Detect); Mycoplasma pneumoniae Not Detected (Not Detect); Parainfluenza Virus 1 Not Detected (Not Detect); Parainfluenza Virus 2 Not Detected (Not Detect); Parainfluenza Virus 3 Not Detected (Not Detect); Parainfluenza Virus 4 Not Detected (Not Detect); Respiratory Syncytial Virus Not Detected (Not Detect); SARS- CoV-2 Not Detected (Not Detecte)
[2021-09-15 21:40] LABS: Clostridium Difficile Tox PCR Negative for C. diff (Negative)
[2021-09-16] VITALS (18 sets, daily range): BP systolic 113–139; BP diastolic 68–82; PULSE 75–95; RESP 15–20; TEMP 36.8–38.8; O2SAT 94–100
[2021-09-16] MEDS: KETOROLAC 30 MG/ML VIAL IV ×2 (00:54→06:30)
[2021-09-16] MEDS: SODIUM CHLORIDE 0.9% 250 ML 21 ML IV (00:54)
[2021-09-16] MEDS: ACETAMINOPHEN 325 MG TABLET 650 MG PO ×3 (01:04→20:59)
[2021-09-16] MEDS: PIPERACILLIN/TAZO 3.375 GM in SODIUM CHLORIDE 0.9% 100 ML IV ×3 (01:57→17:40)
[2021-09-16] MEDS: MELATONIN 3 MG TABLET 6 MG PO ×2 (02:30→21:00)
[2021-09-16 06:17] LABS: Add Manual Diff / Slide Review NO; Basophils Absolute Auto 0 /uL (0-100); Basophils Percent Auto 0.2 % (0-2); Eosinophils Absolute Auto 300 /uL (0-450); Eosinophils Percent Auto 1.8 % (2-4); Hematocrit 33.2 % (41-53); Hemoglobin 11.2 g/dL (13.5-17.5); Lymphocytes Absolute Auto 1500 /uL (1100-4500); Mean Corpuscular HGB Conc 33.9 % (30-36); Mean Corpuscular Hemoglobin 29.2 PG (26-34); Mean Corpuscular Volume 86.1 fL (80-100); Monocytes Absolute Auto 1100 /uL (0-900); Neutrophils Absolute Auto 13300 /uL (1500-7000); Platelet Count 278 X10^3/uL (150-400); Red Blood Cell Count 3.85 X10^6/uL (4.5-5.9); Red Cell Distribution Width 13.8 % (11.6-14.8); White Blood Cell Count 16.2 X10^3/uL (4.5-11.0)
[2021-09-16 07:04] LABS: Alanine Aminotransferase 42 IU/L (<50); Albumin Globulin Ratio 1.1 (1.0-2.8); Alkaline Phosphatase 160 U/L (38-126); Aspartate Aminotransferase 28 IU/L (17-59); BUN Creatinine Ratio 9.5 (6-22); Bilirubin Conjugated 0.1 md/dL (0.0-0.3); Bilirubin Total 1.8 mg/dL (0.2-1.3); Bilirubin Unconjugated 0.7 mg/dL (0.0-1.1); Blood Urea Nitrogen 8 mg/dL (9-20); Calcium 8.1 mg/dL (8.4-10.2); Carbon Dioxide 24 mmol/L (22-32); Chloride 106 mmol/L (98-107); Estimated Glomerular Filt Rate > 60 mL/min (>60); Globulin 2.8 g/dL (1.7-4.1); Glucose 93 mg/dL (70-100); HEMOLYSIS < 15 (0-50); Magnesium 2.1 mg/dL (1.6-2.3); Potassium 3.5 mmol/L (3.4-5.1); Sodium 139 mmol/L (137-145); Total Protein 5.8 g/dL (6.3-8.2)
[2021-09-16 07:16] LABS: Procalcitonin 4.65 ng/mL (<0.5)
--- NOTE | 2021-09-16 13:37 | DI.CT.S_ITS ---
PROCEDURE: CT CHEST ABD PEL W CON INDICATIONS: persistnant abdominal pain fever wbc TECHNIQUE: After the administration of intravenous contrast, 5 mm thick sections acquired from the lung apices to the symphysis. 5 mm coronal and sagittal reformats were performed, with additional 7 mm MIP reformats through the lungs. For radiation dose reduction, the following was used: automated exposure control, adjustment of mA and/or kV according to patient size. COMPARISON: [facility], CT, CT ABDOMEN PELVIS W CON, 09/12/2021, 14:05. FINDINGS: Image quality: Excellent. CHEST: Lungs and pleura: There is diffuse interlobular septal thickening which is new when compared with the prior CT dated September 12, 2021. There are small low-density bilateral pleural effusions, slightly greater on the right than on the left. Consolidation or compressive atelectasis is present at the dependent lung bases, greater on the right than on the left. These findings are new when compared with the CT from September 12, 2021. Mediastinum: Heart size is normal. No pericardial effusion. No mediastinal or hilar adenopathy by size criteria. Thoracic aorta and central pulmonary arteries are normal in size. Esophagus is normal in caliber. No hiatal hernia. Chest wall: No axillary or supraclavicular adenopathy by size criteria. Thyroid gland is unremarkable . ABDOMEN: Solid organs: Liver is normal in size and enhancement. Gallbladder is contracted . Biliary system is non dilated. Pancreas enhances normally. Spleen is normal in size and enhancement. No adrenal nodules. Kidneys demonstrate normal size and enhancement, without hydronephrosis. Peritoneum and bowel: The bowel loops demonstrate overall normal caliber and wall thickness. A hyperemic tubular structure is noted within the posterior right hemipelvis which measures up to 1.1 cm in diameter and appears to represent a hyperemic appendix (series 2/image 106). A low-density fluid collection is present within the pelvis which measures 5.5 x 4.0 x 8.5 cm. Subtle rim enhancement surrounds this fluid collections suggesting a pelvic abscess. No pneumoperitoneum. Nodes and vessels: No retroperitoneal or mesenteric adenopathy by size criteria. Aorta and inferior vena cava are normal in size. Miscellaneous: No ventral hernias. PELVIS: Genitourinary: The bladder is decompressed and the wall is circumferentially thickened. Miscellaneous: No inguinal hernias or adenopathy. Bones: No suspicious bony lesions. No vertebral body compression fractures. IMPRESSION: 1. Findings suspicious for perforated acute appendicitis with pelvic abscess. These findings were discussed with Dr. Li at 3:33 p.m. On September 16, 2021. 2. Small low-density pleural effusions and pulmonary edema. 3. Probable compressive atelectasis at the lung bases although aspiration/infection could also be considered in the differential. Dictated by: Valarie Schaffer M.D. on 09/16/2021 at 15:25 Approved by: Valarie Schaffer M.D. on 09/16/2021 at 15:42
[2021-09-16 14:10] LABS: Anti Mitochondrial ABY IGG <20.0 Units (0.0-20.0)
[2021-09-16 14:33] LABS: C-Reactive Protein Quant 34.5 mg/dL (<1.0)
[2021-09-16 14:39] LABS: Erythrocyte Sedimentation Rate 61 MM/HR (0-15)
--- NOTE | 2021-09-16 14:44 | PC.NURSE ---
Day shift: Pt off unit for test/procedure at approx 1445.
--- NOTE | 2021-09-16 15:02 | PC.NURSE ---
Day shift: Pt back in room from procedure/test at approx 1500.
[2021-09-16 15:09] LABS: Ferritin 134 ng/mL (18-464)
--- NOTE | 2021-09-16 16:02 | P.PN_ITS ---
Subjective Subjective Date Patient Seen: 09/16/21 Interval history: Patient continues to have significant abdominal pain. He reports poor appetite, notes pain in right lower quadrant and up into chest. He has not requested pain medications, he is reluctant to try narcotics Exam Vital Signs (past 8 hours): - 09/16/21 09:00 09/16/21 09:48 09/16/21 14:00 Temperature 98.6 F Pulse Rate 82 Respiratory Rate 16 Blood Pressure 132/71 Pulse Oximetry 98 99 98 Oxygen Delivery Method Room Air Room Air Oxygen Flow Rate 0 09/16/21 13:00 Temperature 98.4 F Pulse Rate 87 Respiratory Rate 15 Blood Pressure 123/68 Pulse Oximetry 100 Oxygen Delivery Method Oxygen Flow Rate 0 Oxygen Delivery Method Room Air Oxygen Flow Rate 0 Narrative Exam Narrative: Frail, ill appearing male lying in bed Resp Other: Lungs: clear to auscultation Cardio Other: CV: RRR nl Sl S2 GI Other: Abd: soft/ very tender in right lower quadrant, tender diffusely, no rebound, no boardlike rigidity, but firm Extrem Other: No Edema Objective Labs Result Diagrams: 09/16/21 05:14 09/16/21 05:14 Labs: Laboratory Results - last 24 hr 09/13/21 09/15/21 09/15/21 09:20 16:20 17:10 WBC RBC Hgb Hct MCV MCH MCHC RDW Plt Count Neut % (Auto) Lymph % (Auto) [place] % (Auto) Eos % (Auto) Baso % (Auto) Neut # (Auto) Lymph # (Auto) [place] # (Auto) Eos # (Auto) Baso # (Auto) ESR Sodium Potassium Chloride Carbon Dioxide BUN Creatinine Estimated GFR BUN/Creatinine Ratio Glucose Calcium Magnesium Ferritin Total Bilirubin Conjugated Bilirubin Unconjugated Bilirubin AST ALT Alkaline Phosphatase C-Reactive Protein Total Protein Albumin Globulin Albumin/Globulin Ratio Procalcitonin Anti-Mitochondrial Ab <20.0 Chlamy pneumoniae PCR Not detected Adenovirus (PCR) Not detected B. pertussis DNA (PCR) Not detected B.parapertussis DNA PCR Not detected C. difficile Tox (PCR) Negative for c. diff Coronavirus OC43 (PCR) Not detected Coronavirus HKU1 (PCR) Not detected Coronavirus 229E (PCR) Not detected SARS-CoV-2 (PCR) Not detected Coronavirus NL63 (PCR) Not detected Human Metapneumovir PCR Not detected Influenza Type A (PCR) Not detected Influenza Type B (PCR) Not detected M. pneumoniae (PCR) Not detected Parainfluenza 1 (PCR) Not detected Parainfluenza 2 (PCR) Not detected Parainfluenza 3 (PCR) Not detected Parainfluenza 4 (PCR) Not detected RSV (PCR) Not detected Entero/Rhino (PCR) Not detected 09/16/21 09/16/21 09/16/21 05:14 05:14 05:14 WBC 16.2 H RBC 3.85 L Hgb 11.2 L Hct 33.2 L MCV 86.1 MCH 29.2 MCHC 33.9 RDW 13.8 Plt Count 278 Neut % (Auto) 82.0 H Lymph % (Auto) 9.0 L [place] % (Auto) 7.0 Eos % (Auto) 1.8 L Baso % (Auto) 0.2 Neut # (Auto) 57175 H Lymph # (Auto) 1500 [place] # (Auto) 1100 H Eos # (Auto) 300 Baso # (Auto) 0 ESR Sodium 139 Potassium 3.5 Chloride 106 Carbon Dioxide 24 BUN 8 L Creatinine 0.84 Estimated GFR > 60 BUN/Creatinine Ratio 9.5 Glucose 93 Calcium 8.1 L Magnesium 2.1 Ferritin Total Bilirubin 1.8 H Conjugated Bilirubin 0.1 Unconjugated Bilirubin 0.7 AST 28 ALT 42 Alkaline Phosphatase 160 H C-Reactive Protein Total Protein 5.8 L Albumin 3.0 L Globulin 2.8 Albumin/Globulin Ratio 1.1 Procalcitonin 4.65 H Anti-Mitochondrial Ab Chlamy pneumoniae PCR Adenovirus (PCR) B. pertussis DNA (PCR) B.parapertussis DNA PCR C. difficile Tox (PCR) Coronavirus OC43 (PCR) Coronavirus HKU1 (PCR) Coronavirus 229E (PCR) SARS-CoV-2 (PCR) Coronavirus NL63 (PCR) Human Metapneumovir PCR Influenza Type A (PCR) Influenza Type B (PCR) M. pneumoniae (PCR) Parainfluenza 1 (PCR) Parainfluenza 2 (PCR) Parainfluenza 3 (PCR) Parainfluenza 4 (PCR) RSV (PCR) Entero/Rhino (PCR) 09/16/21 09/16/21 09/16/21 05:14 14:06 14:06 WBC RBC Hgb Hct MCV MCH MCHC RDW Plt Count Neut % (Auto) Lymph % (Auto) [place] % (Auto) Eos % (Auto) Baso % (Auto) Neut # (Auto) Lymph # (Auto) [place] # (Auto) Eos # (Auto) Baso # (Auto) ESR 61 H Sodium Potassium Chloride Carbon Dioxide BUN Creatinine Estimated GFR BUN/Creatinine Ratio Glucose Calcium Magnesium Ferritin 134 Total Bilirubin Conjugated Bilirubin Unconjugated Bilirubin AST ALT Alkaline Phosphatase C-Reactive Protein 34.5 H Total Protein Albumin Globulin Albumin/Globulin Ratio Procalcitonin Anti-Mitochondrial Ab Chlamy pneumoniae PCR Adenovirus (PCR) B. pertussis DNA (PCR) B.parapertussis DNA PCR C. difficile Tox (PCR) Coronavirus OC43 (PCR) Coronavirus HKU1 (PCR) Coronavirus 229E (PCR) SARS-CoV-2 (PCR) Coronavirus NL63 (PCR) Human Metapneumovir PCR Influenza Type A (PCR) Influenza Type B (PCR) M. pneumoniae (PCR) Parainfluenza 1 (PCR) Parainfluenza 2 (PCR) Parainfluenza 3 (PCR) Parainfluenza 4 (PCR) RSV (PCR) Entero/Rhino (PCR) [facility] Family History Other GERD (gastroesophageal reflux disease) Social History household members: other Smoking Status: Never smoker Assessment & Plan Assessment & Plan narrative: 1. Sepsis-Secondary to Acute Appendicitis/perforation with abscess formation * Patient continues to have abdominal pain, RLQ, elevated WBC, Elevated Procalcitonin, Fever * CT of Abdomen Pelvis * Findings suspicious for perforated acute appendicitis with pelvic abscess. ? These findings were discussed with Dr. Li at 3:33 p.m. On September 16, 2021. ? 2. Small low-density pleural effusions and pulmonary edema. ? 3. Probable compressive atelectasis at the lung bases although aspiration/infection could also be considered in the differential.? * Discussed with * Patient to be made NPO, Continue IVF, Continue Zosyn, Dilaudid * Patient to go to OR tomorrow for Lap Choly * Will sign off, to assume care. Time Spent With Patient Critical Care time: I spent a total of [] minutes of critical care time on this patient's care today; this time is exclusive of procedural time.
[2021-09-16] MEDS: DEXTROSE 5%-0.9% NS 1,000 ML 125 ML IV (16:14)
--- NOTE | 2021-09-16 16:14 | PM.CALLCOV.1 ---
Call Coverage Note Note Date of Patient Contact: 09/16/21 Time of Patient Contact: 16:14 Narrative of Care Provided: CT scan reviewed. Now there is fluid and early abscess in pelvis plus a tubular structure likely a perfed appendicitis. Plan for diagnostic laparoscopy in am. Added [place]
[2021-09-16] MEDS: HYDROMORPHONE 0.5 MG INJ IV (16:17)
[2021-09-16] MEDS: FLUCONAZOLE 200 MG/100 ML PIGGYBACK 100 MG IV (16:22)
[2021-09-16] MEDS: HYDROMORPHONE 0.5 MG INJ 1 MG IV (21:00)
[2021-09-17] VITALS (23 sets, daily range): BP systolic 106–156; BP diastolic 58–88; PULSE 55–91; RESP 16–24; TEMP 35.9–38.8; O2SAT 91–100
--- NOTE | 2021-09-17 | PATH_ITS ---
[facility] Accession Number: [id number] No. of containers..01 Tissue . 01 Material submitted: . appendix - APPENDIX . 01 Diagnosis: Appendix, Appendectomy: Acute appendicitis and periappendicitis. MRV 09/23/2021 1007 Local . 01 Electronically signed: . Sangita Roth MD, Pathologist NPI- [id number] . 01 Gross description: . Received in a container of formalin, labeled patient's name only, is a 2.0 x 0.5 cm proximal portion of appendix. The stapled margin is removed, and the serosa is variegated, focally hemorrhagic, and shaggy. Located 1.0 cm distal to the stapled margin is an apparent surgical defect exposing the underlying lumen. The appendix is sectioned and has unremarkable cut surfaces. The appendix minus the staple line is entirely submitted in cassette A1. ([id number]) /R 09/22/2021 0433 Local . 01 Pathologist provided ICD-10: K35.80 . 01 CPT . 832252 Specimen Comment: A courtesy copy of this report has been sent to [phone] Performed at: 01 [facility] [address] [place] [address] [facility], [place], [place] [id number] MD Royer Mark MD Phone: [phone]
[2021-09-17] MEDS: KETOROLAC 30 MG/ML VIAL 15 MG IV ×2 (00:07→18:09)
[2021-09-17] MEDS: DEXTROSE 5%-0.9% NS 1,000 ML 125 ML IV (01:55)
[2021-09-17] MEDS: PIPERACILLIN/TAZO 3.375 GM in SODIUM CHLORIDE 0.9% 100 ML IV ×3 (01:55→20:25)
[2021-09-17 06:34] LABS: Add Manual Diff / Slide Review NO; Basophils Absolute Auto 0 /uL (0-100); Basophils Percent Auto 0.2 % (0-2); Eosinophils Absolute Auto 400 /uL (0-450); Eosinophils Percent Auto 2.7 % (2-4); Hematocrit 31.8 % (41-53); Hemoglobin 10.8 g/dL (13.5-17.5); Lymphocytes Absolute Auto 1800 /uL (1100-4500); Lymphocytes Percent Auto 13.2 % (25-40); Mean Corpuscular HGB Conc 34.1 % (30-36); Mean Corpuscular Hemoglobin 29.4 PG (26-34); Mean Corpuscular Volume 86.2 fL (80-100); Monocytes Absolute Auto 1300 /uL (0-900); Monocytes Percent Auto 9.5 % (3-14); Neutrophils Absolute Auto 9800 /uL (1500-7000); Neutrophils Percent Auto 74.4 % (50-75); Platelet Count 314 X10^3/uL (150-400); Red Blood Cell Count 3.68 X10^6/uL (4.5-5.9); Red Cell Distribution Width 13.6 % (11.6-14.8); White Blood Cell Count 13.2 X10^3/uL (4.5-11.0)
[2021-09-17 06:49] LABS: Alanine Aminotransferase 30 IU/L (<50); Albumin 2.9 g/dL (3.5-5.0); Alkaline Phosphatase 140 U/L (38-126); Aspartate Aminotransferase 20 IU/L (17-59); Bilirubin Total 1.5 mg/dL (0.2-1.3); Blood Urea Nitrogen 7 mg/dL (9-20); Calcium 7.8 mg/dL (8.4-10.2); Carbon Dioxide 25 mmol/L (22-32); Chloride 107 mmol/L (98-107); Estimated Glomerular Filt Rate > 60 mL/min (>60); Globulin 2.8 g/dL (1.7-4.1); Glucose 107 mg/dL (70-100); HEMOLYSIS < 15 (0-50); Potassium 3.2 mmol/L (3.4-5.1); Sodium 139 mmol/L (137-145); Total Protein 5.7 g/dL (6.3-8.2)
--- NOTE | 2021-09-17 08:36 | PM.PREOP ---
Pre-operative Note COVID-19 COVID-19 status: Negative Criteria for continued procedure: Deterioration of the patient's condition or overall health Interval Note History & Physical reviewed/Exam performed by Physician: Yes Changes to H&P: Yes H&P completed within 30 days and has changed as indicated here:: Ultimately had repeat CT due to continued fevers and WBC. There is new fluid in abdomen and findings consistent with ruptured appendicitis.
--- NOTE | 2021-09-17 08:38 | PC.NURSE ---
Addendum entered by Yash Garg R.N. 09/17/21 11:04: Pt back to floor post-op. Pt aware of move. Pt sleepy. Surgical site CDI. Jeremiah drain present, patent and intact. Pt states being releaved that surgery is finished. Original Note: Pt awake sitting at side of bed anxiously waiting for surgery. Told Pt I would let him know as soon as I knew the time. 08:15 Pt down to OR.
[2021-09-17] MEDS: ACETAMINOPHEN 325 MG TABLET 650 MG PO (08:48)
[2021-09-17] MEDS: LACTATED RINGERS 1,000 ML 42 ML IV ×2 (08:49→09:34)
[2021-09-17] MEDS: BUPIVACAINE 0.5% (PF) 30 ML, EPINEPHrine 0.15 MG INJ (09:10)
--- NOTE | 2021-09-17 09:13 | SUR.OPER ---
Supine on padded OR bed, head on pillow, arms padded and tucked at sides, legs uncrossed, safety belt at thigh, tape over blanket over lower legs .
--- NOTE | 2021-09-17 10:02 | PM.OP.1 ---
Operative Date/Time/Diagnoses Date of procedure: 09/17/21 Time of procedure: 10:02 Pre-op diagnosis: Ruptured appendicitis Post-op diagnosis: same Procedure & Clinicians Procedure: Laparoscopic appendectomy Same procedure as scheduled: Yes Indications: Ruptured appendicitis Surgeon: Rose Tolentino Click Yes if Unassisted: Yes Anesthesia Type: General Operative Notes Findings: Ruptured appendicitis. Very small appendix with healthy base. No mature abscess but free fluid within the abdomen and pelvis. Scrotum insufflated along with the abdomen consistent with hydrocele versus hernia Closure Type: primary Specimen(s): other (Appendix) Prosthetic devices, grafts, tissues, transplants, or devices: 15 Jeremiah drain Applied: drain(s) Estimated Blood Loss (mL): 30 Procedure in detail: Prep diagnosis: Ruptured appendicitis Postop diagnosis: Same Operative procedure: Laparoscopic appendectomy Surgeon: Padmini Tolentino MD Anesthetic: General with ET tube intubation along with local Findings: Free fluid within the abdomen pelvis, no mature abscess. Retro colic appendix either fractured with the tip still in the inflammatory process versus a micro appendix more consistent with size of diverticuli. Procedure: Patient placed in supine position. Prepped and draped sterile fashion to expose his abdomen. Infraumbilical port site was placed using open technique a 12 mm port. Insufflation began all other ports were placed under direct vision including a 5 mm port in the suprapubic area and a 5 mm port in the left lower abdomen. Initially had to mobilize the abdomen as there was free fluid and fibrinous tissue throughout the lower abdomen. I then located the cecum followed by the appendix which was in a retrocecal position and very small in nature. The appendix was bluntly dissected free with a healthy base. GRACE stapling device use and take the base of the appendix in the specimen was placed in an Endo-Catch bag and pulled through the infraumbilical port site intact. I opened on the back table to reassure myself revealing with an appendix which appears to be. I then returned to the abdomen to irrigate and suction until I got a clear return. I then placed a 15 Jeremiah drain into the pelvis wrapping it along to the right side, surgical site. This was brought out through the suprapubic port site and sutured to the skin with 3-0 nylon. I then removed all ports and began closure. Closure consisted of interrupted 0 Vicryl for fascial closure. Skin was closed a running 4-0 Vicryl. Steri-Strips and sterile dressings were placed. Patient was awakened, extubated, taken to recovery room in stable condition. Needle, instrument, sponge counts were correct Blood loss: 30 mL Specimen: Appendix Complications: none
[2021-09-17] MEDS: ONDANSETRON 4 MG/2 ML INJ IV (10:21)
[2021-09-17] MEDS: ACETAMINOPHEN 325 MG TABLET 975 MG PO (10:21)
[2021-09-17] MEDS: OXYCODONE IR 5 MG TABLET PO (10:22)
[2021-09-17] MEDS: FLUCONAZOLE 200 MG/100 ML PIGGYBACK 100 MG IV (15:52)
[2021-09-17] MEDS: MAGNESIUM HYDROXIDE 30 ML UDC PO (18:11)
[2021-09-17] MEDS: DOCUSATE 100 MG CAPSULE 200 MG PO (20:25)
[2021-09-17] MEDS: SODIUM CHLORIDE 0.9% FLUSH 10 ML IV (20:26)
[2021-09-18] VITALS: O2SAT 96
[2021-09-18] MEDS: MELATONIN 3 MG TABLET 6 MG PO (00:27)
[2021-09-18 00:36] VITALS: BP 118/82; PULSE 54; RESP 16; TEMP 36.1; O2SAT 96
[2021-09-18 03:37] VITALS: PULSE 51; RESP 16; TEMP 36.4; O2SAT 99
[2021-09-18] MEDS: PIPERACILLIN/TAZO 3.375 GM in SODIUM CHLORIDE 0.9% 100 ML IV (04:00)
[2021-09-18 06:09] LABS: Add Manual Diff / Slide Review NO; Basophils Absolute Auto 0 /uL (0-100); Basophils Percent Auto 0.2 % (0-2); Eosinophils Absolute Auto 0 /uL (0-450); Hemoglobin 11.2 g/dL (13.5-17.5); Lymphocytes Absolute Auto 1300 /uL (1100-4500); Lymphocytes Percent Auto 11.9 % (25-40); Mean Corpuscular Hemoglobin 29.2 PG (26-34); Mean Corpuscular Volume 85.8 fL (80-100); Monocytes Absolute Auto 900 /uL (0-900); Monocytes Percent Auto 8.1 % (3-14); Neutrophils Absolute Auto 8800 /uL (1500-7000); Neutrophils Percent Auto 79.8 % (50-75); Platelet Count 393 X10^3/uL (150-400); Red Blood Cell Count 3.84 X10^6/uL (4.5-5.9); Red Cell Distribution Width 14.1 % (11.6-14.8)
[2021-09-18 07:42] VITALS: BP 108/64; PULSE 52; RESP 16; TEMP 36.3; O2SAT 98
[2021-09-18 08:00] VITALS: O2SAT 98
--- NOTE | 2021-09-18 09:20 | PM.PN.1 ---
Subjective Subjective Date Patient Seen: 09/18/21 Time Patient Seen: 09:20 Interval history: S/P lap appy with wash out. Markedly better today Exam Vital Signs (past 8 hours): - 09/18/21 03:37 09/18/21 07:42 Temperature 97.5 F L 97.3 F L Pulse Rate 51 L 52 L Respiratory Rate 16 16 Blood Pressure 108/64 Pulse Oximetry 99 98 Oxygen Flow Rate 0 Oxygen Delivery Method Room Air Oxygen Flow Rate 0 Narrative Exam Narrative: Abdomen is soft, drain is serous, wounds dry and intact. Objective Labs Result Diagrams: 09/18/21 05:43 09/17/21 06:15 Labs: Laboratory Results - last 24 hr 09/18/21 05:43 WBC 11.0 RBC 3.84 L Hgb 11.2 L Hct 33.0 L MCV 85.8 MCH 29.2 MCHC 34.0 RDW 14.1 Plt Count 393 Neut % (Auto) 79.8 H Lymph % (Auto) 11.9 L [place] % (Auto) 8.1 Eos % (Auto) 0.0 L Baso % (Auto) 0.2 Neut # (Auto) 8800 H Lymph # (Auto) 1300 [place] # (Auto) 900 Eos # (Auto) 0 Baso # (Auto) 0 PFSH Family History Other GERD (gastroesophageal reflux disease) Social History household members: other Smoking Status: Never smoker Assessment & Plan Assessment & Plan narrative: Continue Augmentin at home until complete. Walk daily, no heavy lifting. Time Spent With Patient Time with patient: less than 30 minutes Critical Care time: I spent a total of [] minutes of critical care time on this patient's care today; this time is exclusive of procedural time.
--- NOTE | 2021-09-18 09:23 | P.DS_ITS ---
History of Present Illness History of Present Illness Date Patient Seen: 09/18/21 Time Patient Seen: 09:23 Chief complaint: abd pain Narrative: Elusive diagnosis. acute appendicitis not responsive to medical management that ultimately declared itself as ruptured appendicitis. Discharge Providers Provider Date of admission: 09/13/21 12:14 Discharge Date: 09/18/21 Consults: 09/16/21 16:05 Consult to Respiratory Therapy Evaluate & Treat Comment: pulmonary toilet. Physician Instructions: Evaluate and treat Discharge provider: Rose Tolentino MD Summary Hospital Course Discharge Diagnosis: Appendicitis not responsive to medical management and eluded diagnostic imaging. Ultimately perforated and he received Lap sumaya with wash out. Hospital Course: Uncomplicated but delay in diagnosis due to persistent negative work up. Status at Discharge Cognitive/behavioral status at discharge: at baseline, oriented Functional status at discharge: independent ambulation Overall status at discharge: patient is progressing back to baseline Time Spent with Patient Time spent: Greater than 30 minutes Exam Vital Signs (past 8 hours): - 09/18/21 03:37 09/18/21 07:42 Temperature 97.5 F L 97.3 F L Pulse Rate 51 L 52 L Respiratory Rate 16 16 Blood Pressure 108/64 Pulse Oximetry 99 98 Oxygen Flow Rate 0 Oxygen Delivery Method Room Air Oxygen Flow Rate 0 Narrative Exam Narrative: abdomen is soft, drain is serous. wounds dry and intact. No fevers, WBC is normal Objective Labs Result Diagrams: 09/18/21 05:43 09/17/21 06:15 Labs: Laboratory Results - last 24 hr 09/18/21 05:43 WBC 11.0 RBC 3.84 L Hgb 11.2 L Hct 33.0 L MCV 85.8 MCH 29.2 MCHC 34.0 RDW 14.1 Plt Count 393 Neut % (Auto) 79.8 H Lymph % (Auto) 11.9 L [place] % (Auto) 8.1 Eos % (Auto) 0.0 L Baso % (Auto) 0.2 Neut # (Auto) 8800 H Lymph # (Auto) 1300 [place] # (Auto) 900 Eos # (Auto) 0 Baso # (Auto) 0 PFSH Family History Other GERD (gastroesophageal reflux disease) Social History household members: other Smoking Status: Never smoker Discharge Assessment & Plan Assessment and Plan Assessment: appendicitis went on to rupture despite IV antibiotics. Patient had Lap appy 09/17/21 Plan of Treatment: Home on Augmentin to complete the course given. No lifting greater than 10 lbs for 2 weeks. Follow up 2-4 weeks. Discharge Plan Discharge Plan Patient Disposition: Home Provider Discharge Comment: No lifting greater than 10 lbs for 2 weeks. Walk daily. You can shower with dressings off the wounds (leave steri strips on for 10 days). Discharge orders & Medications Prescriptions: New oxycodone 5 mg Tablet 5 mg PO PAC[place]OW PRN (Reason: Mild or moderate pain) Qty: 20 0RF ibuprofen 600 mg tablet 600 mg PO Q6H PRN (Reason: fever or pain) Qty: 90 0RF Continued amoxicillin-pot clavulanate 875-125 mg tablet 1 tab PO BID Qty: 14 0RF Follow up/Referrals: Rose Tolentino MD [Physician] - Diet/Activity/Treatments Diet: Diet as Tolerated Skin/Wound/Dressing Care Report to your healthcare provider any signs of infection, such as:: chills, fever, night sweats, increased pain, unusual drainage and unusual redness Visit Report/Discharge Packet Instructions: DI for an Appendectomy Stand Alone Forms: Surgery Discharge
[2021-09-18] MEDS: DOCUSATE 100 MG CAPSULE 200 MG PO (09:31)
[2021-09-18] MEDS: AMOXICILLIN/CLAV 875/125 MG 1 TAB PO (09:32)
[2021-09-18] MEDS: OXYCODONE IR 10 MG TABLET PO (10:18)
[2021-09-18] MEDS: SODIUM CHLORIDE 0.9% FLUSH 10 ML IV (10:18)
--- NOTE | 2021-09-18 11:55 | P.EN_ITS ---
Event Note Date Patient Seen: 09/18/21 Event Note (Rapid Response, Code, or fall): To Whom it may concern: Emiliano has been hospitalized at [facility]
--- NOTE | 2021-09-18 13:10 | PC.NURSE ---
11:59 Patient dressed and ready for discharge home. Pt to be discharged home via pov with [facility]. Pt IV removed and no tele. Pt does not have any prescriptions at the pharmacy here and no items in the safe. Discussed discharge instructions with pt and answered questions. Provided education about appendectomy, opioid use, new medications, stroke signs and symptoms and activity restrictions. Pt educated about not lifting more than 10 pounds for 2 weeks and completing full course of antibiotics. Pt transported out via wheelchair by [employer].
--- NOTE | 2021-09-18 13:16 | PC.NURSE ---
11:[address] Tolentino via phone and notified that pt was requesting off work note. Dr. Tolentino said, ok to give off work note for pt to be off until 09/24/21 and light-duty no lifting more than 10 pounds for 2 weeks.
== END 2021-09-18 11:59 | disposition home or self-care (01) | DRG 853 ==
LOC: ED 12:15 → AC 12:15
PROVIDERS: Internal Medicine; Student in an Organized Health Care Education/Training Program; Admitting Provider Surgery; Emergency Provider Emergency Medicine; Referring Provider Emergency Medicine; Visit Provider Surgery
PROC: 0DTJ4ZZ Resection of Appendix, Percutaneous Endoscopic Approach (ICD-10-PCS; CPT 44970; principal; 2021-09-17 10:00)
DX: A41.9 Sepsis, unspecified organism (principal); K35.32 Acute appendicitis with perforation, localized peritonitis, and gangrene, without abscess; R00.1 Bradycardia, unspecified; Z20.822 Contact with and (suspected) exposure to COVID-19
CPT/HCPCS: 36415; 44970; 71045; 71260; 74177; 74181; 76705; 80048; 80053; 80074; 80076; 80329; 81001; 82248; 82550; 82728; 83036; 83516; 83605; 83690; 83735; 84145; 84484; 85025; 85651; 86140; 86318; 87040; 87389; 87493; 87497; 87633; 87635; 87801; 93005; 93010; 93306; 96365; 96375; 99222; 99284; C9803; G0480; J0171; J1100; J1170; J1450; J1885; J2250; J2270; J2405; J2543; J2704; J3010; Q9967